=== PATIENT | male | born 1965 | race Caucasian/White ===

== ENCOUNTER 2016-10-30 13:08 | Emergency (ER) | payer OTHER ==
[~2016-10-30] VITALS: Ht 175.3 cm; Wt 111.0 kg
[~2016-10-30 13:08] MED LIST: DVN160125 PO; VERA120T15 PO
[2016-10-30 13:27] VITALS: TEMP 36.9; Ht 175.3 cm; Wt 111.0 kg
[2016-10-30] MEDS ORDERED: XYLOCAINE 1%/SOD BICARB 20 ML VIAL INFIL ONE (13:45)
--- NOTE | 2016-10-30 14:34 | EMERGENCY ROOM VISIT NOTE ---
ED Visit Note First contact with patient: 13:32 CHIEF COMPLAINT: Left thigh laceration HISTORY OF PRESENT ILLNESS: This 51-year-old male patient cut the left thigh when he tripped while carrying a chain saw in his hand. This happened approximately 1-1/2 hours ago. The bleeding has stopped. The patient's tetanus is up-to-date. The patient is able to ambulate without any difficulty. The patient denies any numbness and tingling in his leg. REVIEW OF SYSTEMS: 6 system review was performed and was negative unless stated otherwise in history of present illness. PMH: The patient is healthy; hypertension, rotator cuff repair SOCIAL HISTORY: Patient lives with his . The patient denies any tobacco or alcohol use. PHYSICAL EXAM: Vital Signs: Were reviewed Reviewed Nurse's notes. GEN.: 51-year -old white male appears in no acute distress. MENTAL Status: Alert and oriented 3. LEFT THIGH: There is a 5 cm long laceration on the anterior aspect of the thigh. The edges are gaping apart. There is no foreign material in the wound and it looks clean. There is no active bleeding. No deep structures such as tendons or nerves are seen in the base of the wound. EMERGENCY DEPARTMENT COURSE: The patient was evaluated. Wound Repair: Complexity: Basic. Verbal consent was obtained after the risks and benefits were explained, including but not limited to bleeding, scarring, infection, pain, and bone/joint /nerve damage. The skin was prepped with betadine and a sterile field set. The wound was anesthetized with 4.8 ml of 1% buffered lidocaine. With direct pressure the bleeding subsided. Copious irrigation was performed using sterile saline. The wound was explored for foreign bodies and none found. Debridement was not performed. The wound edges were approximated using 5-0 Ethilon with 9 simple interrupted sutures. Hemostasis and excellent approximation was achieved. Antibacterial ointment and a sterile dressing applied. Detailed wound care instructions and signs and symptoms of infection reviewed with the patient. No complications and the patient tolerated the procedure well. DIAGNOSIS: 5 cm left leg laceration DISCHARGE INSTRUCTIONS & TREATMENT: Keep wound clean and dry. No water on the area for 12-24 hrs then no soaking until sutures removed. Do not allow any crusting or dried blood to accumulate on sutures. If this occurs, use a 1:1 solution of hydrogen peroxide/water on a Q-tip to clean the wound. Use an antibiotic ointment for 3-4 days, then let wound dry. Suture removal in 10 days. Follow up sooner for any signs of infection (increasing redness, swelling , drainage). Ice and elevate for swelling and pain. Tylenol 650 mg every 6 hrs for pain. Keep covered when in sun until sutures removed then SPF 50 or higher for one year. Vitamin E oil if desired two weeks after suture removal for reduction of scar. Current/Historical Medications Scheduled Valsartan/Hctz (Diovan Hct 160MG/12.5MG *), 1 TAB PO BID Verapamil (Calan), 180 MG PO DAILY Allergies Coded Allergies: No Known Allergies (Unverified , NONE, 10/30/16) Vital Signs Date Time Temp Pulse Resp B/P Pulse Ox O2 Delivery O2 Flow Rate FiO2 10/30/16 13:27 36.9 94 16 163/97 96 Medications Administered Medications (Trade) Dose Ordered Sig/Krysta Route Start Time Stop Time Status Last Admin Dose Admin Lidocaine HCl (Buffered Lidocaine 1% Inj) 20 ml NOW ONCE INFIL 10/30/16 13:45 10/30/16 13:46 DC 10/30/16 13:45 20 ML Departure Information Referrals Tony Ardon D.O.Int.Med. (PCP) Patient Instructions My [facility]
[2016-10-30 14:42] VITALS: BP 155/88; PULSE 89; O2SAT 99
[2016-11-10] MEDS ORDERED: VERA180T33 PO (09:06)
== END 2016-10-30 14:43 | disposition home or self-care (01) ==
LOC: C.EDB 13:11 → C.EDD 14:43
DX: S71.112A Laceration without foreign body, left thigh, initial encounter (principal); W01.111A Fall on same level from slipping, tripping and stumbling with subsequent striking against power tool or machine, initial encounter; I10 Essential (primary) hypertension

== ENCOUNTER 2016-11-10 18:30 | Emergency (ER) | payer OTHER ==
[~2016-11-10] VITALS: Ht 175.3 cm; Wt 111.9 kg
[~2016-11-10 18:30] MED LIST changes: -VERA120T15 PO; +VERA180T33 PO
[2016-11-10 18:42] VITALS: BP 153/93; PULSE 85; TEMP 36.9; O2SAT 96; Ht 175.3 cm; Wt 111.9 kg
[2016-11-10] MEDS ORDERED: VALS160T58 PO (19:04)
--- NOTE | 2016-11-10 19:24 | EMERGENCY ROOM VISIT NOTE ---
ED Visit Note First contact with patient: 18:40 CHIEF COMPLAINT: Suture removal. HISTORY OF PRESENT ILLNESS: Mr. Barajas is a 54-year-old white male who ambulates into the ED requesting suture removal for a laceration he sustained 11days ago. He reports he feels the laceration has been healing well and reports he has had no pain, swelling, redness, or drainage from the wound. PHYSICAL EXAM: Vital Signs: Date Time Temp Pulse Resp B/P Pulse Ox O2 Delivery O2 Flow Rate FiO2 11/10/16 18:42 36.9 85 18 153/93 96 Room Air General: 51-year-old white male in no acute distress, afebrile and hemodynamically stable. Neurological: Awake, alert and oriented 3. Answering questions appropriately and following commands. Normal gait. Good hand eye coordination. Skin: Clean, dry and intact wound on the anterior left thigh with mild erythema surrounding the wound but no lymphangitis, swelling, tenderness, purulent drainage. ED COURSE: Patient is assessed as noted above. 9 sutures were removed without any difficulty and there was no separation of the wound edges. Patient was educated about tonight's findings and instructed on his treatment plan; he verbalizes understanding and agreement with this plan. DISPOSITION: Patient discharged home in stable condition. CLINICAL IMPRESSION: Suture removal; Well healing laceration PLAN: Patient was encouraged to continue wash the wound with soap and water and apply small amount of antibiotic ointment. Patient was encouraged to follow-up with PCP or return ED for signs of infection or any new/concerning symptoms.
== END 2016-11-10 19:14 | disposition home or self-care (01) ==
LOC: C.EDB 18:31 → C.EDD 19:14
DX: Z48.02 Encounter for removal of sutures (principal); S71.112D Laceration without foreign body, left thigh, subsequent encounter; X58.XXXD Exposure to other specified factors, subsequent encounter

== ENCOUNTER → 2017-10-10 | Day surgery (SDC) | payer BC, OTHER ==
[2016-11-02 09:06] VITALS: BMI 35.0
[2017-09-28 09:48] VITALS: Ht 175.3 cm; Wt 109.1 kg
[~2017-10-10] VITALS: Ht 175.3 cm; Wt 109.1 kg
[~2017-10-10] MED LIST changes: -DVN160125 PO; +LIDOCAINE HCL 2% 2 ML VIAL (20MG/ML) ONE; +OMEG10007 PO; +PROPOFOL IV EMULSION 10 MG/ML 20 ML VIAL IV ONE; +SODIUM CHLORIDE 0.9% 500ML 500 ML IV ONE; +VALS160T58 PO
--- NOTE | 2017-10-10 09:45 | Endo History and Physical ---
History & Physical Date of Service: Oct 10, 2017. Chief Complaint: Screening Referring Physician: Dr. Lara History of Present Illness 52 yo CM who presents for screening colonoscopy. Past Surgical History Hx Cardiac Surgery: No Hx Internal Defibrillator: No Hx Pacemaker: No Hx Abdominal Surgery: No Hx of Implantable Prosthesis: No Hx Post-Op Nausea and Vomiting: No Hx Cancer Surgery: No Hx Thoracic Surgery: No Hx Orthopedic: Yes (RT RCR) Hx Urinary Tract Surgery: No Family History None Social History Smoking Status: Never Smoker Hx Substance Use: No Hx Alcohol Use: Yes (RARELY) Allergies Coded Allergies: No Known Allergies (Verified , NONE, 10/10/17) Current Medications Reported Home Medications Medications Dose Route/Sig Max Daily Dose Days Date Category [place]-3 (Fish Oil) 1 Ea Cap 1 Cap PO QAM 09/28/17 Reported Diovan Hct 160MG/12.5MG (HCTZ/Valsartan) 1 Tab Tab 1 Tab PO BID 11/10/16 Reported Calan Sr Ext Rel (Verapamil Hcl) 180 Mg Tab 180 Mg PO QAM 11/02/16 Reported Vital Signs Weight (Kilograms): 109.09 Height (Feet): 5 Height (Inches): 9 Physical Exam General Appearance: WD/WN, no apparent distress Respiratory/Chest: Auscultation: breath sounds normal Cardiovascular: Heart Auscultation: RRR Abdomen: Bowel Sounds: normal Inspection & Palpation: soft, non-distended, no tenderness, guarding & rebound Assessment and Plan Assessment: 51 yo CM who presents for screening colonoscopy. Plan: Proceed with colonoscopy.
--- NOTE | 2017-10-10 11:27 | Discharge Instructions ---
Endoscopy Patient Instructions Date / Procedure(s) Performed Oct 10, 2017. Colonoscopy Allergy Information Coded Allergies: No Known Allergies (Verified , NONE, 10/10/17) Discharge Date / Findings Oct 10, 2017. Colon polyps Diverticulosis Internal hemorrhoids Medication Instructions OK to resume all medication today as prescribed Reported Home Medications Medications Dose Route/Sig Max Daily Dose Days Date Category [place]-3 (Fish Oil) 1 Ea Cap 1 Cap PO QAM 09/28/17 Reported Diovan Hct 160MG/12.5MG (HCTZ/Valsartan) 1 Tab Tab 1 Tab PO BID 11/10/16 Reported Calan Sr Ext Rel (Verapamil Hcl) 180 Mg Tab 180 Mg PO QAM 11/02/16 Reported Provider Instructions Activity Restrictions - No exercising or heavy lifting for 24 hours. - Do not drink alcohol the day of the procedure. - Do not drive a car or operate machinery until the day after the procedure. - Do not make any important decisions or sign important papers in 24 hours after the procedure. Following Day: - Return to full activity which may include returning to work/school. Diet Start your diet with liquids and light foods (jello, soup, juice, toast). Then eat your usual diet if not nauseated. Treatment For Common After Affects For mild abdominal pain, bloating, or excessive gas: - Rest - Eat lightly - Lie on right side Follow-Up Information Follow-up with Dr. Amrit Lara as scheduled Anesthesia Information What You Should Know You have had a procedure that required some medicine to reduce anxiety and discomfort. This treatment is called moderate sedation. After receiving the treatment, you may be sleepy, but you will be able to breathe on your own. The effects of the treatment may last for several hours. Follow these instructions along with Activity/Diet recommendations noted above: * Do NOT do anything where dizziness or clumsiness would be dangerous. * Rest quietly at home today, then you can be up and about tomorrow. * Have a responsible person stay with you the rest of today. * You may have had an I.V. today. If so, you may take the dressing off later today. Recommendations Call your doctor if: * Trouble breathing * Continuous vomiting for more than 24 hours * Temperature above 101 degrees * Severe abdominal pain or bloating * Pain not relieved by pain medicine ordered * There is increased drainage or redness from any incision * A large amount of rectal bleeding greater than 2-3 tablespoons. (If you had a polyp/s removed or have hemorrhoids, a small amount of blood - from the rectum is to be expected.) * You have any unanswered questions or concerns. IN THE EVENT OF A SERIOUS EMERGENCY, GO TO THE NEAREST EMERGENCY ROOM Your discharge instructions were prepared by provider Jeromy Proctor. Patient Instructions Signature Page Jerel Close Patient (or Guardian) Signature/Date: I have read and understand the instructions given to me by my caregivers. Caregiver/RN/Doctor Signature/Date: The above-named patient and/or guardian has received patient instructions on this date. + Original Patient Signature Page (only) stays with chart. Please make copy for patient.
--- NOTE | 2017-10-10 11:31 | GI REPORT ---
Procedure Date: 10/10/2017 10:52 AM Procedure: Colonoscopy Indications: Screening for colorectal malignant neoplasm Medicines: Monitored Anesthesia Care Complications: No immediate complications. Estimated Blood Loss: Estimated blood loss: none. Procedure: Pre-Anesthesia Assessment: - Prior to the procedure, a History and Physical was performed, and patient medications and allergies were reviewed. The patient's tolerance of previous anesthesia was also reviewed. The risks and benefits of the procedure and the sedation options and risks were discussed with the patient. All questions were answered, and informed consent was obtained. Prior Anticoagulants: The patient has taken no previous anticoagulant or antiplatelet agents. ASA Grade Assessment: II - A patient with mild systemic disease. After reviewing the risks and benefits, the patient was deemed in satisfactory condition to undergo the procedure. After I obtained informed consent, the scope was passed under direct vision. Throughout the procedure, the patient's blood pressure, pulse, and oxygen saturations were monitored continuously. The scope was introduced through the anus and advanced to the terminal ileum. The colonoscopy was performed without difficulty. The patient tolerated the procedure well. The quality of the bowel preparation was good. The appendiceal orifice and the rectum were photographed. Findings: The perianal and digital rectal examinations were normal. Four sessile polyps were found in the ascending colon and cecum. The polyps were 3 to 5 mm in size. These polyps were removed with a cold snare. Resection and retrieval were complete. Multiple small-mouthed diverticula were found in the sigmoid colon. Non-bleeding internal hemorrhoids were found during retroflexion. The hemorrhoids were small. Impression: - Four 3 to 5 mm polyps in the ascending colon and in the cecum, removed with a cold snare. Resected and retrieved. - Diverticulosis in the sigmoid colon. - Non-bleeding internal hemorrhoids. Recommendation: - Resume previous diet. - Continue present medications. - Repeat colonoscopy for surveillance based on pathology results. - Return to primary care physician as previously scheduled. Jeromy Proctor, DO 10/10/2017 11:30:39 AM This report has been signed electronically. Note Initiated On: 10/10/2017 10:52 AM I attest to the content of the Intraoperative Record and orders documented therein, exceptions below
[2017-10-10 11:47] VITALS: BP 132/84; PULSE 71; O2SAT 98
--- NOTE | 2017-10-10 12:13 | Anesthesiology Progress Note ---
Anesthesia Post Op Note Date & Time Oct 10, 2017 at 12:12 Vital Signs Pain Intensity: 0 Vital Signs Past 12 Hours Date Time Temp Pulse Resp B/P (MAP) Pulse Ox O2 Delivery O2 Flow Rate FiO2 10/10/17 11:47 65 20 121/85 (97) 98 Room Air 10/10/17 11:30 65 16 119/68 (85) 98 Room Air 10/10/17 11:29 67 16 111/68 (82) 97 Room Air 10/10/17 09:47 36.5 65 18 128/82 (97) 99 Room Air Notes Mental Status: alert / awake / arousable, participated in evaluation Pt Amnestic to Procedure: Yes Nausea / Vomiting: adequately controlled Pain: adequately controlled Airway Patency, RR, SpO2: stable & adequate BP & HR: stable & adequate Hydration State: stable & adequate Anesthetic Complications: no major complications apparent
== END | disposition home or self-care (01) ==
LOC: C.GI 09:12
PROVIDERS: ATTEND Internal Medicine
DX: Z12.11 Encounter for screening for malignant neoplasm of colon (principal); D12.2 Benign neoplasm of ascending colon; D12.0 Benign neoplasm of cecum; K57.30 Diverticulosis of large intestine without perforation or abscess without bleeding; K64.8 Other hemorrhoids; I10 Essential (primary) hypertension; E78.5 Hyperlipidemia, unspecified; E66.9 Obesity, unspecified; Z68.35 Body mass index [BMI] 35.0-35.9, adult

== ENCOUNTER 2018-09-13 08:10 | Observation (INO) ==
[2018-09-13] MEDS ORDERED: ASPIRIN CHEW 324 MG PO STA (08:29)
[2018-09-13] MEDS ORDERED: HydrALAZINE HCL 20 MG/ML VIAL IV STA (08:30)
[2018-09-13 08:40] LABS: Basophils # (auto) 0.02 K/uL (0-0.2); Basophils % (auto) 0.4 %; Eosinophils # (auto) 0.07 K/uL (0-0.5); Eosinophils % (auto) 1.3 %; Hematocrit (blood only) 44.5 % (42-52); Hemoglobin 14.9 g/dL (14.0-18.0); Immature Granulocytes # (auto) 0.02 K/uL (0.00-0.02); Immature Granulocytes % (auto) 0.4 %; Lymphocytes # (auto) 1.83 K/uL (1.2-3.4); Lymphocytes % (auto) 34.7 %; Mean Corpuscular Hgb Conc 33.5 g/dL (32-36); Mean Corpuscular Volume 88.8 fL (80-100); Mean Platelet Volume 11.3 fL (7.4-10.4); Monocytes # (auto) 0.46 K/uL (0.11-0.59); Monocytes % (auto) 8.7 %; Neutrophils # (auto) 2.87 K/uL (1.4-6.5); Neutrophils % (auto) 54.5 %; Platelet Count 185 K/uL (130-400); RDW Coefficient of Variation 13.6 % (11.5-14.5); RDW Standard Deviation 44.1 fL (36.4-46.3); Red Blood Count 5.01 M/uL (4.7-6.1); White Blood Count 5.27 K/uL (4.8-10.8)
[2018-09-13 08:56] LABS: Alanine Aminotransferase 35 U/L (12-78); Albumin Level 4.3 gm/dl (3.4-5.0); Aspartate Aminotransferase 16 U/L (15-37); Blood Urea Nitrogen 15 mg/dl (7-18); Calcium 9.3 mg/dl (8.5-10.1); Carbon Dioxide 25 mmol/L (21-32); Chloride 102 mmol/L (98-107); Creatinine Clr Calc Pharmacy 85.2 ml/min; Est GFR (African American) 73.6; Est GFR (Non-African American) 63.5; Glucose 100 mg/dl (70-99); Potassium 3.7 mmol/L (3.5-5.1); Sodium 136 mmol/L (136-145)
[2018-09-13 09:01] LABS: Albumin Globulin Ratio 1.1 (0.9-2); Alkaline Phosphatase 76 U/L (45-117); Bilirubin,Total 0.9 mg/dl (0.2-1); Globulin 3.9 gm/dl (2.5-4.0); Total Protein 8.2 gm/dl (6.4-8.2); Troponin I < 0.015 ng/ml (0-0.045)
--- NOTE | 2018-09-13 09:09 | XRay Report ---
XR chest 1V portable CLINICAL HISTORY: Chest Pain COMPARISON STUDY: Chest radiograph and chest CT May 10, 2011. FINDINGS: There is no pneumothorax or pleural effusion. There is no consolidation or evidence for pul monary edema. Cardiomediastinal silhouette is stable. Appearance of the chest is unchanged. IMPRESSION: No acute cardiopulmonary findings. Electronically signed by: Stu Hughes M.D. 09/13/2018 9:07 AM
[2018-09-13] MEDS ORDERED: LABETALOL HCL IV 5 MG/ML 20ML IV STA (09:36)
--- NOTE | 2018-09-13 10:55 | History & Physical Report ---
Date of Service September 13, 2018 Assessment & Plan (1) Substernal chest pain: This patient is a 53-year-old male with a history of hypertension and obesity, who presents to the ER with 3 days of intermittent chest discomfort that is substernal and radiates to the throat, jaw, and at times to the left shoulder. It feels like a burning in nature and is sometimes associated with belching. It is not associated with nausea or shortness of breath, however he does feel he gets to take one deep breath when it first starts to catch his breath. It usually lasts less than an hour but this morning it lasted a full hour prior to coming in here and was resolved on its own by the time he got here. At first it seemed to come on with walking, but then at other times it would come on at rest. In the ER, his blood pressure was quite elevated at 181/112 and he was given IV hydralazine and IV labetalol Chest pain seems atypical but does have a strong family history, uncontrolled hypertension as risk factors for heart disease. -Admit to telemetry for cardiac rhythm monitoring -Serial troponins, fasting lipid profile in the morning and start statin if indicated and/or if has CAD -Resting echocardiogram ordered -If troponins negative, consider stress echocardiogram in the morning, will make n.p.o. after midnight just in case -Consult cardiology for further input -Start aspirin 81 mg once daily -Could try Maalox if chest pain recurs as does sound GI related -Daily EKG (2) HTN (hypertension): Long-standing, uncontrolled at present -Continue home verapamil 180 mg once daily and losartan/HCT at home dosing, however could consider increasing doses if blood pressure remains uncontrolled by tomorrow (3) Obesity: Needs counseling on weight loss, and dietary changes (4) Hypertensive urgency: Blood pressure significant elevated upon admission, was given IV hydralazine and IV labetalol in the ER. He does not check his blood pressure much at home but when he does it normally is in the 120s-130s systolic as he can recall. May be elevated here secondary to anxiety. -Will assess blood pressure throughout the day and consider increasing home p.o. meds as noted above if remains elevated -will have IV labetalol ordered as needed (5) RBBB: New from previous in 2010 -Most likely a benign finding, but appreciate cardiology consultation (6) DVT prophylaxis: SCDs, Lovenox SQ Disposition-admit to telemetry, most likely go home tomorrow after an overnight observation stay History of Present Illness Chief Complaint: Chest discomfort Primary Care Provider: Amrit Lara DO This patient is a 53-year-old male with a history of hypertension and obesity, who presents to the ER with 3 days of intermittent chest discomfort that is substernal and radiates to the throat, jaw, and at times to the left shoulder. It feels like a burning in nature and is sometimes associated with belching. It is not associated with nausea or shortness of breath, however he does feel he gets to take one deep breath when it first starts to catch his breath. It usually lasts less than an hour but this morning it lasted a full hour prior to coming in here and was resolved on its own by the time he got here. At first it seemed to come on with walking, but then at other times it would come on at rest. In the ER, his blood pressure was quite elevated at 181/112 and he was given IV hydralazine and IV labetalol He denied headache or lightheadedness, recent illness, no visual changes, no fevers, no abdominal pains, no nausea/vomiting/diarrhea, no joint pains or rashes. He will be admitted for a rule out acute coronary syndrome and further cardiac risk stratification. Allergies Allergy/AdvReac Type Severity Reaction Status Date / Time No Known Allergies Allergy NONE Verified 09/13/18 08:27 Home Medications Home Medications Medication Instructions Recorded Confirmed Type losartan-hydrochlorothiazide 1 tab PO QAM 09/13/18 09/13/18 History omega 5-stm-uzj-fish oil [Fish Oil] 1 cap PO QAM 09/13/18 09/13/18 History verapamil 180 mg PO QAM 09/13/18 09/13/18 History Past Med/Surg History Medical History Hypertensive urgency Obesity Substernal chest pain (Acute) HTN (hypertension) Surgical History History of excision of pilonidal cyst History of repair of rotator cuff Family History Father Heart attack, Onset Age: 55 Uncle Heart attack, Onset Age: 68 Mother Afib HTN (hypertension), benign Grandfather (Maternal) HTN (hypertension), benign Social History marital status: Current Living Situation: Spouse and Family current occupational status: employed 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 Other Information That Helps Us Care for You: No Feels Safe at Home: Yes Safety Concerns: Feels Safe At This Time Smoking Status: Never smoker Do You Dip or Chew Tobacco: Yes (snuff occ) Hx Alcohol Use: No Hx Substance Use: No Beliefs That Will Affect Care: None Preferred Language: Uzbek Communication Ability: Effective Review of Systems All systems reviewed & are unremarkable except as noted in HPI & below Physical Exam 2 Vital Signs (Past 24 Hours): Last Vital Signs Temp 36.7 C 09/13/18 08:11 Pulse 73 09/13/18 10:14 Resp 18 09/13/18 10:14 BP 162/105 H 09/13/18 10:14 Pulse Ox 97 09/13/18 08:56 Constitutional: WD/WN, vitals as above Eyes: PERRL, conjunctivae normal, anicteric sclerae ENMT: external ear and nose normal, oropharynx normal Ears: no external ear abnormality, no EAC abnormality and no TM abnormality Neck: trachea midline, no thyromegaly Respiratory: normal respiratory effort, lungs clear to auscultation Cardiovascular: RRR, no murmur, no edema Vessels: dorsalis pedis pulses present; no JVD and no carotid bruit Extremities: no edema Gastrointestinal (Abdomen): normal bowel sounds, soft, nontender, no hepatosplenomegaly Musculoskeletal: Extremities: extremities normal to inspection; no cyanosis and no clubbing Skin: no rashes, warm and dry Neurologic: moves all extremities and awake; no focal motor deficits Psychiatric: A+Ox3, euthymic affect Lymphatic: no preauricular lymphadenopathy, no cervical lymphadenopathy and no subclavicular lymphadenopathy Results & Data Laboratory Results 09/13/18 09/13/18 09/13/18 Range/Units 08:33 08:30 08:30 WBC 5.27 (4.8-10.8) K/uL RBC 5.01 (4.7-6.1) M/uL Hgb 14.9 (14.0-18.0) g/dL Hct 44.5 (42-52) % MCV 88.8 (80-100) fL MCH 29.7 (25-34) pg MCHC 33.5 (32-36) g/dL RDW Std Deviation 44.1 (36.4-46.3) fL RDW Coeff of Ashlee 13.6 (11.5-14.5) % Plt Count 185 (130-400) K/uL MPV 11.3 H (7.4-10.4) fL Immature Gran % (Auto) 0.4 % Neut % (Auto) 54.5 % Lymph % (Auto) 34.7 % Wallace % (Auto) 8.7 % Eos % (Auto) 1.3 % Baso % (Auto) 0.4 % Immature Gran # (Auto) 0.02 (0.00-0.02) K/uL Neut # (Auto) 2.87 (1.4-6.5) K/uL Lymph # (Auto) 1.83 (1.2-3.4) K/uL Wallace # (Auto) 0.46 (0.11-0.59) K/uL Eos # (Auto) 0.07 (0-0.5) K/uL Baso # (Auto) 0.02 (0-0.2) K/uL Sodium 136 (136-145) mmol/L Potassium 3.7 (3.5-5.1) mmol/L Chloride 102 (98-107) mmol/L Carbon Dioxide 25 (21-32) mmol/L Anion Gap 9.0 (3-11) BUN 15 (7-18) mg/dl Creatinine 1.28 (0.6-1.4) mg/dl Est Cr Clr Drug Dosing 85.2 ml/min Est GFR ( Amer) 73.6 Est GFR (Non-Af Amer) 63.5 BUN/Creatinine Ratio 12.0 (10-20) Glucose 100 H (70-99) mg/dl Calcium 9.3 (8.5-10.1) mg/dl Total Bilirubin 0.9 (0.2-1) mg/dl AST 16 (15-37) U/L ALT 35 (12-78) U/L Alkaline Phosphatase 76 (45-117) U/L POC Troponin I < 0.03 (0-0.045) ng/ml Troponin I < 0.015 (0-0.045) ng/ml Total Protein 8.2 (6.4-8.2) gm/dl Albumin 4.3 (3.4-5.0) gm/dl Globulin 3.9 (2.5-4.0) gm/dl Albumin/Globulin Ratio 1.1 (0.9-2) Lipase 127 (73-393) U/L Diagnostic Findings Chest x-ray image personally reviewed by me and agree with the following report: XR chest 1V portable CLINICAL HISTORY: Chest Pain COMPARISON STUDY: Chest radiograph and chest CT May 10, 2011. FINDINGS: There is no pneumothorax or pleural effusion. There is no consolidation or evidence for pulmonary edema. Cardiomediastinal silhouette is stable. Appearance of the chest is unchanged. IMPRESSION: No acute cardiopulmonary findings. ECG Indication: chest pain Rhythm: normal sinus Findings: + RBBB (New from 2010) Additional Comments: No ischemic changes noted Code Status & VTE Plan Code Status Full code VTE Prophylaxis Plan VTE Prophylaxis will be ordered: Yes _ (1) HTN (hypertension) Hypertension type: essential hypertension Qualified Code(s): I10 - Essential (primary) hypertension (2) Obesity Obesity classification: adult class 1 (BMI 30 - 34.9) Serious obesity comorbidity presence: with serious comorbidity Body mass index: BMI 34.0-34.9 Obesity type: unspecified obesity type Qualified Code(s): E66.9 - Obesity, unspecified; Z68.34 - Body mass index (BMI) 34.0-34.9, adult
[2018-09-13] MEDS ORDERED: LABETALOL HCL IV 5 MG/ML 20ML IV PRN ×2 (11:03→14:00)
[2018-09-13] MEDS ORDERED: POLYETHYLENE (MIRALAX) 17 GM PACK PO PRN (11:56)
[2018-09-13] MEDS ORDERED: NITROGLYCERIN SL 0.4 MG/TAB TAB SL PRN (11:56)
[2018-09-13] MEDS ORDERED: ALUMINUM/MAGNESIUM SUSP 30 ML UDC PO PRN (11:56)
[2018-09-13] MEDS ORDERED: ONDANSETRON INJ 2 MG/ML 2 ML VIAL IV PRN (11:56)
[2018-09-13] MEDS ORDERED: ACETAMINOPHEN 325 MG TAB ONE (13:10)
[2018-09-13] MEDS: ACETAMINOPHEN 325 MG TAB PO PRN ×2 (13:12→20:11)
[2018-09-13 14:33] LABS: INR 1.1 (0.9-1.1); Prothrombin Time 10.7 Seconds (9.0-12.0)
--- NOTE | 2018-09-13 15:47 | Emergency Department Note ---
Entered by Qi Beard acting as a scribe for History of Present Illness General Chief complaint: Cardiac Assessment Stated complaint: CHEST DISCOMFORT Time Seen by Provider: 09/13/18 08:23 Source: patient History of Present Illness Provider complaint: Chest discomfort Onset (ago): day(s) 3 Location: chest Radiation: neck Pain Consistency: + intermittent Quality: + burning and + other (tingling) Relieved By: + other (stretching) Associated symptoms: + other (Denies: chest pain, leg swelling) The patient is a 53 year old male who presents to the Emergency Room with complaints of intermittent chest discomfort beginning 3 days ago. He describes his symptoms as a tingling or burning, and states he does not feel like he has chest pain. The patient states this sensation radiates to his neck, and denies radiation to his arm or back. He notes stretching seems to relieves these symptoms. The patient states it almost feels as though he has pulled a muscle in his back. He reports he notices this discomfort when walking. The patient states he feels as though he has to take a deep breath when walking. He denies leg swelling. The patient reports his father had his first heart attack in his 50s, and both his father and uncle have atypical heart attacks. He states his mother has A fib. He is a pt of Dr. Amrit Lara. Home Medications Home Medications Medication Instructions Recorded Confirmed Type losartan-hydrochlorothiazide 1 tab PO QAM 09/13/18 09/13/18 History omega [id number] oil [Fish Oil] 1 cap PO QAM 09/13/18 09/13/18 History aspirin [Ecotrin Low Strength] 81 mg PO QAM #30 tab 09/15/18 Rx atorvastatin 80 mg PO HS #30 tab 09/15/18 Rx clopidogrel 75 mg PO QAM #30 tab 09/15/18 Rx metoprolol succinate [Toprol XL] 50 mg PO DAILY #30 tab 09/15/18 Rx nitroglycerin [Nitrostat] 0.4 mg SUBLINGUAL Q5M PRN #30 tab 09/15/18 Rx Allergies Allergy/AdvReac Type Severity Reaction Status Date / Time No Known Allergies Allergy NONE Verified 09/13/18 08:27 Past Med/Surg History Medical History Hypertensive urgency Obesity Substernal chest pain (Acute) HTN (hypertension) Surgical History History of excision of pilonidal cyst History of repair of rotator cuff Family History Father Heart attack, Onset Age: 55 Uncle Heart attack, Onset Age: 68 Mother Afib HTN (hypertension), benign Grandfather (Maternal) HTN (hypertension), benign Social History marital status: Current Living Situation: Spouse and Family current occupational status: employed 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 and A total of 10 systems reviewed and were otherwise negative Physical Exam Vital Signs Vital Signs - 24 hr 09/15/18 08:00 09/15/18 11:22 Temperature 37.2 C 37.2 C Temperature Source Oral Pulse Rate [Left] 73 73 Pulse Rhythm [Left] Regular Pulse Strength [Left] Normal Respiratory Rate 16 16 Respiratory Effort / Characteristics Non-Labored Respiratory Depth Normal Respiratory Pattern Regular Blood Pressure [Left Arm] 164/93 H 164/93 H Blood Pressure Mean [Left Arm] 116 Blood Pressure Position [Left Arm] Lying Pulse Oximetry 96 96 Oxygen Delivery Method Room Air Vital signs reviewed. General: Well-appearing middle-aged man, in no significant distress. HEENT: No scleral icterus, PERRLA, neck supple. Atraumatic. Cardiovascular: Regular rate and rhythm, no extra sounds. Pulmonary: Clear to auscultation bilaterally, normal work of breathing. Abdomen: Soft, nontender, nondistended, positive bowel sounds. Musculoskeletal: Atraumatic, no peripheral edema. Neurologic: Patient awake alert and oriented x 3. Skin: Warm, dry, no rash. Course 0826: Past medical records reviewed. The patient was evaluated in room B10, and a complete history and physical examination were performed. 0939: I reviewed the patient's case with Dr. Biswas, [facility] hospitalist. He will evaluate the patient for further management. 0956: Upon reevaluation, the patient is resting. I discussed test results. They verbalized agreement with the treatment plan. Consultations Consultation #1: I reviewed the patient's case with Dr. Biswas, [facility] hospitalist. He will evaluate the patient for further management. Time: 09:39 Administered Medications Discontinued Medications Acetaminophen (Tylenol) 650 mg PO Q4H PRN PRN Reason: Pain or Fever Stop: 10/13/18 11:55 Last Admin: 09/15/18 02:44 Dose: 650 mg Admin: 09/14/18 21:03 Dose: 650 mg Admin: 09/14/18 08:16 Dose: 650 mg Admin: 09/13/18 20:11 Dose: 650 mg Admin: 09/13/18 13:12 Dose: 650 mg Acetaminophen (Tylenol) Confirm Administered Dose 650 mg .ROUTE .STK-MED ONE Stop: 09/13/18 13:11 Last Admin: 09/13/18 13:12 Dose: Not Given Aspirin (Aspirin) 324 mg PO NOW [facility] Stop: 09/13/18 08:30 Last Admin: 09/13/18 08:45 Dose: 324 mg Aspirin (Ecotrin Ectab) [facility] Stop: 10/14/18 08:59 Last Admin: 09/15/18 07:48 Dose: 81 mg Admin: 09/14/18 08:14 Dose: 81 mg Atorvastatin Calcium (Lipitor) 40 mg PO [facility] Stop: 10/13/18 20:59 Last Admin: 09/13/18 21:28 Dose: 40 mg Atorvastatin Calcium (Lipitor) 80 mg PO [facility] Stop: 10/14/18 20:59 Last Admin: 09/14/18 21:00 Dose: 80 mg Clopidogrel Bisulfate (Plavix) Confirm Administered Dose 600 mg .ROUTE .STK-MED ONE Stop: 09/14/18 12:28 Last Admin: 09/14/18 12:34 Dose: 600 mg Clopidogrel Bisulfate (Plavix) [facility] [place] Stop: 10/15/18 08:59 Last Admin: 09/15/18 07:51 Dose: 75 mg Enoxaparin Sodium (Lovenox) 40 mg SQ Q24H [facility] Stop: 10/13/18 15:59 Last Admin: 09/14/18 16:45 Dose: 40 mg Admin: 09/13/18 16:32 Dose: 40 mg Fentanyl Citrate (Fentanyl Citrate) Confirm Administered Dose 100 mcg .ROUTE .[facility] ONE Stop: 09/14/18 10:16 Last Increment: 09/14/18 12:32 Dose: 50 mcg Heparin Sodium (Porcine) (Heparin Iv Bolus (Heading Matcher [employer] Assembler Use Only)) Confirm Administered Dose 10,000 units .ROUTE .[facility] ONE Stop: 09/14/18 10:16 Last Admin: 09/14/18 12:32 Dose: 10,000 units Heparin Sodium (Porcine) (Heparin Iv Bolus (Heading Matcher [employer] Assembler Use Only)) Confirm Administered Dose 10,000 units .ROUTE [facility] Stop: 09/14/18 11:28 Last Admin: 09/14/18 12:34 Dose: 8,000 units Heparin Sodium/Sodium Chloride (Heparin Sod/Nss 2 Units/Ml) Confirm Administered Dose 3,000 units IV .[facility] Stop: 09/14/18 10:16 Last Admin: 09/14/18 10:32 Dose: 3,000 units Hydralazine HCl (Hydralazine Hcl) 10 mg IV NOW STA Stop: 09/13/18 08:31 Last Admin: 09/13/18 08:45 Dose: 10 mg Hydrochlorothiazide (Hctz) 12.5 mg PO QAM [facility] Stop: 10/14/18 08:59 Last Admin: 09/15/18 07:49 Dose: 12.5 mg Admin: 09/14/18 08:14 Dose: 12.5 mg Sodium Chloride (Nss 1000ml) 1,000 mls @ 100 mls/hr IV .Q10H [facility] Stop: 09/14/18 17:59 Last Infusion: 09/14/18 20:52 Dose: 0 mls/hr Admin: 09/14/18 13:00 Dose: 100 mls/hr Labetalol HCl (Normodyne) 10 mg IV NOW STA Stop: 09/13/18 09:37 Last Admin: 09/13/18 10:12 Dose: 10 mg Lidocaine HCl (Xylocaine 1% (Local)) Confirm Administered Dose 20 ml .ROUTE .[facility] Stop: 09/14/18 10:14 Last Admin: 09/14/18 10:32 Dose: 20 ml Losartan Potassium (Cozaar) 50 mg PO QAM [facility] Stop: 10/14/18 08:59 Last Admin: 09/15/18 07:48 Dose: 50 mg Admin: 09/14/18 08:13 Dose: 50 mg Metoprolol Tartrate (Lopressor) 25 mg PO BID [facility] Stop: 10/13/18 20:59 Last Admin: 09/15/18 07:48 Dose: 25 mg Admin: 09/14/18 20:59 Dose: 25 mg Admin: 09/14/18 08:14 Dose: 25 mg Admin: 09/13/18 21:28 Dose: 25 mg Midazolam HCl (Versed) Confirm Administered Dose 2 mg .ROUTE .STK-MED [facility] Stop: 09/14/18 10:16 Last Admin: 09/14/18 12:33 Dose: 2 mg Midazolam HCl (Versed) Confirm Administered Dose 2 mg .ROUTE .STK-MED ONE Stop: 09/14/18 11:07 Last Admin: 09/14/18 12:33 Dose: Not Given Morphine Sulfate (Morphine Sulfate) 2 mg IV NOW [facility] Stop: 09/14/18 13:56 Last Admin: 09/14/18 14:02 Dose: Not Given Morphine Sulfate (Morphine Sulfate) Confirm Administered Dose 2 mg .ROUTE [facility] Stop: 09/14/18 13:59 Last Admin: 09/14/18 14:00 Dose: 2 mg Nicardipine HCl (Cardene) Confirm Administered Dose 25 mg .ROUTE .STK-MED ONE Stop: 09/14/18 10:16 Last Admin: 09/14/18 10:32 Dose: 25 mg Nitroglycerin (Nitro-Bid 2%) 0.5 inch EXT Q6H [facility] Stop: 10/13/18 19:59 Last Admin: 09/15/18 07:54 Dose: 0.5 inch Admin: 09/15/18 02:39 Dose: 0.5 inch Admin: 09/14/18 21:03 Dose: 0.5 inch Admin: 09/14/18 14:04 Dose: 0.5 inch Admin: 09/14/18 08:19 Dose: 0.5 inch Admin: 09/14/18 03:10 Dose: 0.5 inch Admin: 09/13/18 21:26 Dose: 0.5 inch Nitroglycerin/Dextrose (Nitroglycerin/D5w 100 Mcg/Ml 20ml Syringe) Confirm Administered Dose 2,000 mcg .ROUTE .STK-MED ONE Stop: 09/14/18 10:16 Last Admin: 09/14/18 10:32 Dose: 2,000 mcg Medical Decision Making Differential Diagnosis DDx: Acute coronary syndrome, pulmonary embolus, aortic dissection, musculoskeletal pain, pneumonia, pleural effusion, pneumothorax, GERD Medical Records Attestation: I reviewed the patient's medical records. Home Medications Current Medication List: was personally reviewed by me Laboratory Data Attestation: I reviewed the patient's lab results. Result diagrams: 09/13/18 08:30 09/14/18 07:00 Lab Results 09/13/18 09/13/18 09/13/18 Range/Units 08:30 08:30 08:30 WBC 5.27 (4.8-10.8) K/uL RBC 5.01 (4.7-6.1) M/uL Hgb 14.9 (14.0-18.0) g/dL Hct 44.5 (42-52) % MCV 88.8 (80-100) fL MCH 29.7 (25-34) pg MCHC 33.5 (32-36) g/dL RDW Std Deviation 44.1 (36.4-46.3) fL RDW Coeff of Ashlee 13.6 (11.5-14.5) % Plt Count 185 (130-400) K/uL MPV 11.3 H (7.4-10.4) fL Immature Gran % (Auto) 0.4 % Neut % (Auto) 54.5 % Lymph % (Auto) 34.7 % [place] % (Auto) 8.7 % Eos % (Auto) 1.3 % Baso % (Auto) 0.4 % Immature Gran # (Auto) 0.02 (0.00-0.02) K/uL Neut # (Auto) 2.87 (1.4-6.5) K/uL Lymph # (Auto) 1.83 (1.2-3.4) K/uL [place] # (Auto) 0.46 (0.11-0.59) K/uL Eos # (Auto) 0.07 (0-0.5) K/uL Baso # (Auto) 0.02 (0-0.2) K/uL PT 10.7 (9.0-12.0) Seconds INR 1.1 (0.9-1.1) Sodium 136 (136-145) mmol/L Potassium 3.7 (3.5-5.1) mmol/L Chloride 102 (98-107) mmol/L Carbon Dioxide 25 (21-32) mmol/L Anion Gap 9.0 (3-11) BUN 15 (7-18) mg/dl Creatinine 1.28 (0.6-1.4) mg/dl Est Cr Clr Drug Dosing 85.2 ml/min Est GFR ( Amer) 73.6 Est GFR (Non-Af Amer) 63.5 BUN/Creatinine Ratio 12.0 (10-20) Glucose 100 H (70-99) mg/dl Calcium 9.3 (8.5-10.1) mg/dl Total Bilirubin 0.9 (0.2-1) mg/dl AST 16 (15-37) U/L ALT 35 (12-78) U/L Alkaline Phosphatase 76 (45-117) U/L POC Troponin I (0-0.045) ng/ml Troponin I < 0.015 (0-0.045) ng/ml Total Protein 8.2 (6.4-8.2) gm/dl Albumin 4.3 (3.4-5.0) gm/dl Globulin 3.9 (2.5-4.0) gm/dl Albumin/Globulin Ratio 1.1 (0.9-2) Triglycerides Cholesterol LDL Cholesterol, Calc VLDL Cholesterol, Calc HDL Cholesterol Cholesterol/HDL Ratio Lipase 127 (73-393) U/L 09/13/18 09/13/18 09/13/18 Range/Units 08:33 16:55 22:53 WBC (4.8-10.8) K/uL RBC (4.7-6.1) M/uL Hgb (14.0-18.0) g/dL Hct (42-52) % MCV (80-100) fL MCH (25-34) pg MCHC (32-36) g/dL RDW Std Deviation (36.4-46.3) fL RDW Coeff of Ashlee (11.5-14.5) % Plt Count (130-400) K/uL MPV (7.4-10.4) fL Immature Gran % (Auto) % Neut % (Auto) % Lymph % (Auto) % [place] % (Auto) % Eos % (Auto) % Baso % (Auto) % Immature Gran # (Auto) (0.00-0.02) K/uL Neut # (Auto) (1.4-6.5) K/uL Lymph # (Auto) (1.2-3.4) K/uL [place] # (Auto) (0.11-0.59) K/uL Eos # (Auto) (0-0.5) K/uL Baso # (Auto) (0-0.2) K/uL PT (9.0-12.0) Seconds INR (0.9-1.1) Sodium (136-145) mmol/L Potassium (3.5-5.1) mmol/L Chloride (98-107) mmol/L Carbon Dioxide (21-32) mmol/L Anion Gap (3-11) BUN (7-18) mg/dl Creatinine (0.6-1.4) mg/dl Est Cr Clr Drug Dosing ml/min Est GFR ( Amer) Est GFR (Non-Af Amer) BUN/Creatinine Ratio (10-20) Glucose (70-99) mg/dl Calcium (8.5-10.1) mg/dl Total Bilirubin (0.2-1) mg/dl AST (15-37) U/L ALT (12-78) U/L Alkaline Phosphatase (45-117) U/L POC Troponin I < 0.03 (0-0.045) ng/ml Troponin I 0.042 0.021 (0-0.045) ng/ml Total Protein (6.4-8.2) gm/dl Albumin (3.4-5.0) gm/dl Globulin (2.5-4.0) gm/dl Albumin/Globulin Ratio (0.9-2) Triglycerides Cholesterol LDL Cholesterol, Calc VLDL Cholesterol, Calc HDL Cholesterol Cholesterol/HDL Ratio Lipase (73-393) U/L 09/14/18 09/14/18 Range/Units 07:00 07:00 WBC (4.8-10.8) K/uL RBC (4.7-6.1) M/uL Hgb (14.0-18.0) g/dL Hct (42-52) % MCV (80-100) fL MCH (25-34) pg MCHC (32-36) g/dL RDW Std Deviation (36.4-46.3) fL RDW Coeff of Ashlee (11.5-14.5) % Plt Count (130-400) K/uL MPV (7.4-10.4) fL Immature Gran % (Auto) % Neut % (Auto) % Lymph % (Auto) % [place] % (Auto) % Eos % (Auto) % Baso % (Auto) % Immature Gran # (Auto) (0.00-0.02) K/uL Neut # (Auto) (1.4-6.5) K/uL Lymph # (Auto) (1.2-3.4) K/uL [place] # (Auto) (0.11-0.59) K/uL Eos # (Auto) (0-0.5) K/uL Baso # (Auto) (0-0.2) K/uL PT (9.0-12.0) Seconds INR (0.9-1.1) Sodium 137 (136-145) mmol/L Potassium 4.0 (3.5-5.1) mmol/L Chloride 106 (98-107) mmol/L Carbon Dioxide 25 (21-32) mmol/L Anion Gap 6.0 (3-11) BUN 19 H (7-18) mg/dl Creatinine 1.20 (0.6-1.4) mg/dl Est Cr Clr Drug Dosing 90.8 ml/min Est GFR ( Amer) 79.5 Est GFR (Non-Af Amer) 68.6 BUN/Creatinine Ratio 16.1 (10-20) Glucose 106 H (70-99) mg/dl Calcium 8.6 (8.5-10.1) mg/dl Total Bilirubin (0.2-1) mg/dl AST (15-37) U/L ALT (12-78) U/L Alkaline Phosphatase (45-117) U/L POC Troponin I (0-0.045) ng/ml Troponin I (0-0.045) ng/ml Total Protein (6.4-8.2) gm/dl Albumin (3.4-5.0) gm/dl Globulin (2.5-4.0) gm/dl Albumin/Globulin Ratio (0.9-2) Triglycerides Cancelled 419 H Cholesterol Cancelled 167 LDL Cholesterol, Calc Cancelled VLDL Cholesterol, Calc Cancelled HDL Cholesterol Cancelled 27 Cholesterol/HDL Ratio Cancelled 6 Lipase (73-393) U/L Imaging Data Radiologist's Impression: Radiology results as stated below per my review and the radiologist's interpretation: XR chest 1V portable CLINICAL HISTORY: Chest Pain COMPARISON STUDY: Chest radiograph and chest CT May 10, 2011. FINDINGS: There is no pneumothorax or pleural effusion. There is no consolidation or evidence for pulmonary edema. Cardiomediastinal silhouette is stable. Appearance of the chest is unchanged. IMPRESSION: No acute cardiopulmonary findings. Electronically signed by: Stu Hughes M.D. 09/13/2018 9:07 AM ECG Data Attestation: I personally reviewed and interpreted this ECG as follows: Indication: chest pain Rate (beats per minute): 71 Rhythm: normal sinus Findings: + other (Repolarization abnormality. ), + RBBB and + left axis deviation; no PAC, no PVC, no ST depression and no ST elevation Blood Pressure Blood Pressure Findings: Elevated blood pressure Blood Pressure Disposition: further management by hospitalist MDM Narrative This pt was evaluated and appeared to be in no distress. IV access was obtained and lab work was drawn. Pt was placed on the quality assurance monitor body. EKG reveals RBBB without acute changes, but no previous for comparison. Pt was given ASA to chew. He is noted to be hypertensive, given IV hydralazine. CXR is clear. Lab work reveals negative troponin. He has significant risk factors and a story concerning for ACS. Case was d/w the hospitalist service for further management. Pt and family are aware of the plan and agree. Impression & Plan Substernal chest pain, Chest pain radiating to jaw Discharge Plan Visit Data *Final* Discharge Date/Time: 09/13/18 11:36 Chief Complaint: Cardiac Assessment Stated Complaint: CHEST DISCOMFORT ED Provider: Jenise Ray Discharge Problem: Substernal chest pain, Chest pain radiating to jaw Patient Disposition: Admitted As Inpatient Discharge Instructions Interventions: ED Discharge Assessment Last Done: 09/13/18 11:36 The scribe's documentation has been prepared under my direction and personally reviewed by me in its entirety. I confirm that the note above accurately reflects all work, treatment, procedures, and medical decision making performed by me.
--- NOTE | 2018-09-13 15:48 | Cardiology Consultation ---
Date of Consultation September 13, 2018 Assessment & Plan (1) Chest pain radiating to jaw: Patient presented with intermittent chest pressure over the last 3 days. The discomfort can occur with walking or at rest. His initial troponin was negative, and ECG shows no acute ischemic changes. Echocardiogram shows normal LV wall motion and systolic function. Recommend continuing to trend cardiac enzymes. If his enzymes remain negative, will plan a stress echocardiogram in the morning for further evaluation. He should remain NPO after midnight. (2) HTN (hypertension): His blood pressure was elevated at 181/112 mmHg on arrival. He was treated with IV labetalol and IV hydralazine with improvement. His most recent pressure was normotensive at 126/79. His chest discomfort symptoms could possibly have been related to the elevated blood pressure, and recommend optimal BP control moving forward. Will therefore increase his losartan to 100 mg daily. He will continue HCTZ 12.5 mg daily. Will also continue Verapamil 180 mg daily, but will have him hold the dose in the morning in anticipation of his stress echo. Patient was discussed with Dr. Padilla. Supervising Physician Co-Signing Physician Notes Patient was seen and examined. Please see my note under separate cover due to changes in patient's labs and clinical course. The detailed plan of my separate consultation is noted below. ASSESSMENT/PLAN: 1. Chest Pain/Possible Angina: Although his symptoms are not necessarily classic as he has had intermittent right chest pain. There is concern that pain started as exertional and has since involved to occasional rest pain. He also had diaphoresis with ashen valerio color this morning. His chest discomfort is concerning enough for angina. Although his troponin is not elevated, his second troponin has changed from being undetectable to 0.042, just below abnormal levels. His next troponin is pending. Given this change in troponin and concerning symptoms with family history of CAD, it is reasonable to proceed to cardiac catheterization. Risks and benefits were discussed with he and his . They are made aware that CT surgery is not available at this facility. He and his would prefer to pursue cardiac catheterization rather than stress testing at this time. We discussed the fact that stress testing is an option if his next troponin does not further increase but that if his stress test is negative, we may consider cardiac catheterization in the future if his symptoms persist. They prefer cardiac catheterization. NPO after midnight. Because he does have intermittent symptoms here, nitroglycerin paste ordered. Metoprolol 25 mg twice daily ordered. High-intensity statin therapy ordered. Continue aspirin. If his troponin becomes more elevated overnight, consider heparin drip. 2. Hypertension: Beta-james initiated as above. Most recent blood pressure is normal. 3. Disposition: Cardiology will continue to follow. Highly complex medical issues as above. Thank you for allowing me to participate in the care of your patient. Please call for any other questions or concerns. Sincerely, Jordon Padilla M.D. History of Present Illness Reason for Consultation: Chest pain Requesting Physician: Dr. Walter Attending Physician: Dr. Padilla History of Present Illness Mr. Barajas is a 53-year-old male with a past medical history significant for hypertension and dyslipidemia who was admitted earlier today in the setting of chest pain. The patient states that 3 days ago, he began noting intermittent left-sided chest pressure. He has associated "tingling" or "cool sensation" which goes into his throat and jaw with the discomfort, and he also feels as though he needs to take a deep breath. The chest discomfort can occur with prolonged walking and resolves within 10-15 minutes of rest. He has also noted the discomfort at rest, which lasts about 5-15 minutes. He denies any association with food, and he has not tried any OTC medications to help provide relief of his symptoms. This morning, he had a more prolonged episode lasting about an hour in duration. His , who accompanies him, also states that he appeared valerio and diaphoretic. He therefore presented to the ED for further evaluation. His first troponin was negative. ECG shows sinus rhythm with right bundle branch block, but no acute ischemic changes. He was hypertensive with a blood pressure of 181/112 mmHg, and he was given IV hydralazine and IV labetalol with improvement in his pressure. He reports that he has continued to note intermittent chest pressure since being admitted. The pressure can now occur on the left or right side of his chest, but he states that it is not as severe. He denies shortness of breath or edema. He denies palpitations, lightheadedness, syncope, or presyncope. He denies abnormal bleeding such as melena, hematochezia, or hematuria. He denies cerebrovascular symptoms. He denies fevers chills, cough, or wheezing. He denies GI or symptoms. Review of Systems: As noted in HPI. All other 10 point ROS are reviewed and otherwise negative at this time. Past medical history: 1. Hypertension 2. Dyslipidemia 3. Right rotator cuff repair 4. Pilonidal cyst removal Family history: His mother has atrial fibrillation. His father has had 2 MIs and coronary stents placed; his first PR occurred in his 50s. His paternal uncle had a PR at the age of 67. Social history: He is with 4 children. 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 He denies smoking or illicit drug use. Rare alcohol use. Allergies Allergy/AdvReac Type Severity Reaction Status Date / Time No Known Allergies Allergy NONE Verified 09/13/18 08:27 Home Medications Home Medications Medication Instructions Recorded Confirmed Type losartan-hydrochlorothiazide 1 tab PO QAM 09/13/18 09/13/18 History omega 7-wwz-cwg-fish oil [Fish Oil] 1 cap PO QAM 09/13/18 09/13/18 History verapamil 180 mg PO QAM 09/13/18 09/13/18 History Patient History Medical History Hypertensive urgency Obesity Substernal chest pain (Acute) HTN (hypertension) Surgical History History of excision of pilonidal cyst History of repair of rotator cuff Family History Father Heart attack, Onset Age: 55 Uncle Heart attack, Onset Age: 68 Mother Afib HTN (hypertension), benign Grandfather (Maternal) HTN (hypertension), benign Social History marital status: Current Living Situation: Spouse and Family current occupational status: employed 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 [employer] Other Information That Helps Us Care for You: No Feels Safe at Home: Yes Safety Concerns: Feels Safe At This Time Smoking Status: Never smoker Do You Dip or Chew Tobacco: Yes (snuff occ) Hx Alcohol Use: No Hx Substance Use: No Beliefs That Will Affect Care: None Preferred Language: Djiboutian Communication Ability: Effective Physical Exam 2 Vital Signs (Past 24 Hours): Last Vital Signs Temp 36.8 C 09/13/18 15:16 Pulse 71 09/13/18 15:16 Resp 18 09/13/18 15:16 BP 126/79 09/13/18 15:16 Pulse Ox 96 09/13/18 15:16 Constitutional: Alert, oriented, in no acute distress HEENT: Head is atraumatic and normocephalic. EOMs intact. Sclera anicteric. Face is symmetric. No perioral cyanosis. Mucous membranes moist. Neck: Supple, no JVD, no carotid bruits Pulmonary: Normal respiratory effort, clear to auscultation bilaterally Cardiac: Regular rate and rhythm, normal S1 and S2, no gallops, no rubs, no murmurs Extremities: No clubbing, cyanosis, or edema. Pulses 2+ and symmetric Abdomen: Normal bowel sounds, soft, non-tender, no abdominal mass palpated Skin: Normal skin color, turgor, and pigmentation, no rash, no skin lesions Neurological: Oriented to person, place, and time Results & Data Laboratory Results Laboratory Results WBC 5.27 K/uL (4.8-10.8) 09/13/18 08:30 RBC 5.01 M/uL (4.7-6.1) 09/13/18 08:30 Hgb 14.9 g/dL (14.0-18.0) 09/13/18 08:30 Hct 44.5 % (42-52) 09/13/18 08:30 MCV 88.8 fL (80-100) 09/13/18 08:30 MCH 29.7 pg (25-34) 09/13/18 08:30 MCHC 33.5 g/dL (32-36) 09/13/18 08:30 RDW Std Deviation 44.1 fL (36.4-46.3) 09/13/18 08:30 RDW Coeff of Ashlee 13.6 % (11.5-14.5) 09/13/18 08:30 Plt Count 185 K/uL (130-400) 09/13/18 08:30 MPV 11.3 fL (7.4-10.4) H 09/13/18 08:30 Immature Gran % (Auto) 0.4 % 09/13/18 08:30 Neut % (Auto) 54.5 % 09/13/18 08:30 Lymph % (Auto) 34.7 % 09/13/18 08:30 [place] % (Auto) 8.7 % 09/13/18 08:30 Eos % (Auto) 1.3 % 09/13/18 08:30 Baso % (Auto) 0.4 % 09/13/18 08:30 Immature Gran # (Auto) 0.02 K/uL (0.00-0.02) 09/13/18 08:30 Neut # (Auto) 2.87 K/uL (1.4-6.5) 09/13/18 08:30 Lymph # (Auto) 1.83 K/uL (1.2-3.4) 09/13/18 08:30 [place] # (Auto) 0.46 K/uL (0.11-0.59) 09/13/18 08:30 Eos # (Auto) 0.07 K/uL (0-0.5) 09/13/18 08:30 Baso # (Auto) 0.02 K/uL (0-0.2) 09/13/18 08:30 PT 10.7 Seconds (9.0-12.0) 09/13/18 08:30 INR 1.1 (0.9-1.1) 09/13/18 08:30 Sodium 136 mmol/L (136-145) 09/13/18 08:30 Potassium 3.7 mmol/L (3.5-5.1) 09/13/18 08:30 Chloride 102 mmol/L (98-107) 09/13/18 08:30 Carbon Dioxide 25 mmol/L (21-32) 09/13/18 08:30 Anion Gap 9.0 (3-11) 09/13/18 08:30 BUN 15 mg/dl (7-18) 09/13/18 08:30 Creatinine 1.28 mg/dl (0.6-1.4) 09/13/18 08:30 Est Cr Clr Drug Dosing 85.2 ml/min 09/13/18 08:30 Est GFR ( Amer) 73.6 09/13/18 08:30 Est GFR (Non-Af Amer) 63.5 09/13/18 08:30 BUN/Creatinine Ratio 12.0 (10-20) 09/13/18 08:30 Glucose 100 mg/dl (70-99) H 09/13/18 08:30 Calcium 9.3 mg/dl (8.5-10.1) 09/13/18 08:30 Total Bilirubin 0.9 mg/dl (0.2-1) 09/13/18 08:30 AST 16 U/L (15-37) 09/13/18 08:30 ALT 35 U/L (12-78) 09/13/18 08:30 Alkaline Phosphatase 76 U/L (45-117) 09/13/18 08:30 POC Troponin I < 0.03 ng/ml (0-0.045) 09/13/18 08:33 Troponin I < 0.015 ng/ml (0-0.045) 09/13/18 08:30 Total Protein 8.2 gm/dl (6.4-8.2) 09/13/18 08:30 Albumin 4.3 gm/dl (3.4-5.0) 09/13/18 08:30 Globulin 3.9 gm/dl (2.5-4.0) 09/13/18 08:30 Albumin/Globulin Ratio 1.1 (0.9-2) 09/13/18 08:30 Lipase 127 U/L (73-393) 09/13/18 08:30 Diagnostic Findings Echo 09/13/2018: Normal LV size, wall motion and systolic function. EF 55-60%. Mild concentric LVH. Grade I diastolic dysfunction. No significant valvular abnormalities. CXR: No acute cardiopulmonary findings. ECG: Normal sinus rhythm. Left axis deviation. Right bundle branch block. Telemetry monitoring: Sinus rhythm in the 60-70s. IVCD. _ (1) HTN (hypertension) Hypertension type: essential hypertension Qualified Code(s): I10 - Essential (primary) hypertension
[2018-09-13] MEDS: ENOXAPARIN INJ 40 MG/0.4 ML SYR SQ SCH (16:32)
--- NOTE | 2018-09-13 20:14 | Cardiology Consultation ---
Date of Consultation September 13, 2018 Assessment & Plan (1) Exertional angina: Although his symptoms are not necessarily classic as he has had intermittent right chest pain. There is concern that pain started as exertional and has since involved to occasional rest pain. He also had diaphoresis with ashen valerio color this morning. His chest discomfort is concerning enough for angina. Although his troponin is not elevated, his second troponin has changed from being undetectable to 0.042, just below abnormal levels. His next troponin is pending. Given this change in troponin and concerning symptoms with family history of CAD, it is reasonable to proceed to cardiac catheterization. Risks and benefits were discussed with he and his . They are made aware that CT surgery is not available at this facility. He and his would prefer to pursue cardiac catheterization rather than stress testing at this time. We discussed the fact that stress testing is an option if his next troponin does not further increase but that if his stress test is negative, we may consider cardiac catheterization in the future if his symptoms persist. They prefer cardiac catheterization. NPO after midnight. Because he does have intermittent symptoms here, nitroglycerin paste ordered. Metoprolol 25 mg twice daily ordered. High-intensity statin therapy ordered. Continue aspirin. If his troponin becomes more elevated overnight, consider heparin drip. (2) HTN (hypertension): Beta-james initiated as above. Most recent blood pressure is normal. 3. Disposition: Cardiology will continue to follow. Highly complex medical issues as above. Thank you for allowing me to participate in the care of your patient. Please call for any other questions or concerns. Sincerely, Jordon Padilla M.D. History of Present Illness Reason for Consultation: Chest pain Requesting Physician: Dr. Walter Attending Physician: Phylicia Walter MD History of Present Illness Mr. Barajas is a pleasant 53-year-old gentleman with history significant for hypertension and dyslipidemia who was admitted for chest discomfort. He was seen earlier today by Brinda De La Torre PA-C of cardiology. Please see her note for medical history and other details. He was personally evaluated this evening after his second troponin was drawn. His was present at the bedside. He has had 3 days of intermittent chest discomfort. The first episode occurred while ambulating. It was a left-sided chest burning that radiated to his neck and jaw. There was no diaphoresis but felt as though he had to take a deep breath. It resolved within 10 minutes of rest. Since then he continues to have intermittent exertional chest pain. On rare occasion, he would have chest discomfort while sitting. This occurred yesterday for the first time. He also has had occasional left-sided or even right-sided chest pain while laying in his hospital bed, however short-lived. He came to the hospital today because while walking to his truck he had another episode and when he walked back into the house his noted that he was ashen valerio in appearance and also diaphoretic. They came to the hospital for further evaluation. Prior to the 3 days of symptoms, he has not had any other chest discomfort. He denies syncope, near-syncope, orthopnea, edema, or bleeding. His is quite concerned about his symptoms. She states that they live a very stressful life. They have 4 children at home and his job is also stressful. Review of systems: As above. Review of systems otherwise negative/ unremarkable. Family history: Father had 2 MIs and PCI. His first UT occurred in his 50s. Paternal uncle had UT at the age of 67. Mother with AFib. Social history: Denies tobacco, alcohol, or drug abuse. He is and lives at home with his and 4 children. 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 His is present at the bedside. Allergies Allergy/AdvReac Type Severity Reaction Status Date / Time No Known Allergies Allergy NONE Verified 09/13/18 08:27 Home Medications Home Medications Medication Instructions Recorded Confirmed Type losartan-hydrochlorothiazide 1 tab PO QAM 09/13/18 09/13/18 History omega 7-maw-neu-fish oil [Fish Oil] 1 cap PO QAM 09/13/18 09/13/18 History verapamil 180 mg PO QAM 09/13/18 09/13/18 History Patient History Medical History Hypertensive urgency Obesity Substernal chest pain (Acute) HTN (hypertension) Surgical History History of excision of pilonidal cyst History of repair of rotator cuff Family History Father Heart attack, Onset Age: 55 Uncle Heart attack, Onset Age: 68 Mother Afib HTN (hypertension), benign Grandfather (Maternal) HTN (hypertension), benign Social History marital status: Current Living Situation: Spouse and Family current occupational status: employed 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 Alert and oriented. HEENT: Anicteric sclera. Neck: No JVD. No bruits. Normal carotid upstrokes bilaterally. Cardiac: PMI was nondisplaced. No ventricular heave. Regular rate and rhythm. Normal S1-S2. No murmurs, rubs, or gallops. Pulmonary: Clear to auscultation bilaterally without wheezes, rales, or rhonchi. Abdomen: Soft, nontender, nondistended, with normoactive bowel sounds. No bruits noted. Extremities: 2+ radial pulses bilaterally; Allens's ok. 2+ femoral pulses bilaterally; no bruit. 2+ posterior tibialis pulses bilaterally. No edema or cyanosis. Psychiatric: Affect appears appropriate. Chest: Nontender to palpation. Results & Data Laboratory Results Laboratory Results - last 24 hr 09/13/18 09/13/18 09/13/18 08:30 08:30 08:30 WBC 5.27 RBC 5.01 Hgb 14.9 Hct 44.5 MCV 88.8 MCH 29.7 MCHC 33.5 RDW Std Deviation 44.1 RDW Coeff of Ashlee 13.6 Plt Count 185 MPV 11.3 H Immature Gran % (Auto) 0.4 Neut % (Auto) 54.5 Lymph % (Auto) 34.7 [place] % (Auto) 8.7 Eos % (Auto) 1.3 Baso % (Auto) 0.4 Immature Gran # (Auto) 0.02 Neut # (Auto) 2.87 Lymph # (Auto) 1.83 [place] # (Auto) 0.46 Eos # (Auto) 0.07 Baso # (Auto) 0.02 PT 10.7 INR 1.1 Sodium 136 Potassium 3.7 Chloride 102 Carbon Dioxide 25 Anion Gap 9.0 BUN 15 Creatinine 1.28 Est Cr Clr Drug Dosing 85.2 Est GFR ( Amer) 73.6 Est GFR (Non-Af Amer) 63.5 BUN/Creatinine Ratio 12.0 Glucose 100 H Calcium 9.3 Total Bilirubin 0.9 AST 16 ALT 35 Alkaline Phosphatase 76 POC Troponin I Troponin I < 0.015 Total Protein 8.2 Albumin 4.3 Globulin 3.9 Albumin/Globulin Ratio 1.1 Lipase 127 09/13/18 09/13/18 08:33 16:55 WBC RBC Hgb Hct MCV MCH MCHC RDW Std Deviation RDW Coeff of Ashlee Plt Count MPV Immature Gran % (Auto) Neut % (Auto) Lymph % (Auto) [place] % (Auto) Eos % (Auto) Baso % (Auto) Immature Gran # (Auto) Neut # (Auto) Lymph # (Auto) [place] # (Auto) Eos # (Auto) Baso # (Auto) PT INR Sodium Potassium Chloride Carbon Dioxide Anion Gap BUN Creatinine Est Cr Clr Drug Dosing Est GFR ( Amer) Est GFR (Non-Af Amer) BUN/Creatinine Ratio Glucose Calcium Total Bilirubin AST ALT Alkaline Phosphatase POC Troponin I < 0.03 Troponin I 0.042 Total Protein Albumin Globulin Albumin/Globulin Ratio Lipase Diagnostic Findings Telemetry personally reviewed: No arrhythmia. Sinus rhythm. ECG 09/13/2018 personally reviewed: Sinus rhythm 71 bpm. Left axis deviation. RBBB. Echo 09/13/2018: Normal LV size, wall motion, systolic function. EF 55-60%. Type 1 diastolic dysfunction. Mild LVH. No significant valvular abnormalities. Medications Administered Current Inpatient Medications Acetaminophen (Tylenol) 650 mg PO Q4H PRN PRN Reason: Pain or Fever Stop: 10/13/18 11:55 Last Admin: 09/13/18 13:12 Dose: 650 mg Al Hydrox/Mg Hydrox/Simethicone (Maalox) 15 ml PO Q4H PRN PRN Reason: Dyspepsia Stop: 10/13/18 11:55 Aspirin (Ecotrin Ectab) 81 mg PO QAM [facility] Stop: 10/14/18 08:59 Atorvastatin Calcium (Lipitor) 40 mg PO HS [facility] Stop: 10/13/18 20:59 Enoxaparin Sodium (Lovenox) 40 mg SQ Q24H [facility] Stop: 10/13/18 15:59 Last Admin: 09/13/18 16:32 Dose: 40 mg Hydrochlorothiazide (Hctz) 12.5 mg PO QAM [facility] Stop: 10/14/18 08:59 Labetalol HCl (Normodyne) 10 mg IV Q4H PRN PRN Reason: SBP>180 or SBP>110 Stop: 10/13/18 13:59 [facility]) [facility]: 10/14/18 08:59 Metoprolol Tartrate (Lopressor) 25 mg PO BID [facility] Stop: 10/13/18 20:59 Nitroglycerin (Nitrostat) 0.4 mg SL UD PRN PRN Reason: Chest Pain Stop: 10/13/18 11:55 Nitroglycerin (Nitro-Bid 2%) 0.5 inch EXT Q6H [facility] Stop: 10/13/18 19:59 Ondansetron HCl (Zofran) 4 mg IV Q6H PRN PRN Reason: Nausea Stop: 10/13/18 11:55 Polyethylene Glycol (Miralax Powder Packet) 17 gm PO DAILY PRN PRN Reason: Constipation Stop: 10/13/18 11:55 _ (1) HTN (hypertension) Hypertension type: essential hypertension Qualified Code(s): I10 - Essential (primary) hypertension
[2018-09-13] MEDS ORDERED: ATORVASTATIN 40 MG TAB PO SCH (21:00)
[2018-09-13] MEDS: NITROGLYCERIN 2% OINTMENT 30GM TUBE EXT SCH (21:26)
[2018-09-13] MEDS: METOPROLOL TARTRATE 25 MG TAB PO SCH (21:28)
[2018-09-14] MEDS: NITROGLYCERIN 2% OINTMENT 30GM TUBE EXT SCH ×4 (03:10→21:03)
[2018-09-14 07:54] LABS: BUN Creatinine Ratio 16.1 (10-20); Calcium 8.6 mg/dl (8.5-10.1); Creatinine Clr Calc Pharmacy 90.8 ml/min; Est GFR (African American) 79.5; Est GFR (Non-African American) 68.6
[2018-09-14] MEDS: LOSARTAN POTASSIUM 50 MG TAB PO SCH (08:13)
[2018-09-14] MEDS: ASPIRIN 81 MG ECTAB PO SCH (08:14)
[2018-09-14] MEDS: hydroCHLOROthiazide 25 MG TAB PO SCH (08:14)
[2018-09-14] MEDS: METOPROLOL TARTRATE 25 MG TAB PO SCH ×2 (08:14→20:59)
[2018-09-14] MEDS: ACETAMINOPHEN 325 MG TAB PO PRN ×2 (08:16→21:03)
[2018-09-14] MEDS ORDERED: VERAPAMIL HCL 180 MG TABCR PO SCH (09:00)
[2018-09-14] MEDS ORDERED: LOSARTAN POTASSIUM 50 MG TAB PO SCH (09:00)
[2018-09-14] MEDS ORDERED: LOSARTAN/HCTZ 50/12.5MG TAB PO SCH (09:00)
[2018-09-14] MEDS ORDERED: LIDOCAINE HCL 1% 20 ML VIAL ONE (10:13)
[2018-09-14] MEDS ORDERED: fentaNYL citrate 100 MCG/2 ML VIAL ONE (10:15)
[2018-09-14] MEDS ORDERED: MIDAZOLAM HCL 1 MG/ML 2ML VIAL ONE ×2 (10:15→11:06)
[2018-09-14] MEDS ORDERED: NiCARDipine HCL INJ 2.5 MG/ML 10 ML AMP ONE (10:15)
[2018-09-14] MEDS ORDERED: HEPARIN (PORCINE) 1000 UNIT/ML 10 ML (CATH LAB USE ONLY) ONE ×2 (10:15→11:27)
[2018-09-14] MEDS ORDERED: NITROGLYCERIN/D5W 100MCG/ML 20ML SYR ONE (10:15)
--- NOTE | 2018-09-14 10:19 | Pre Anesthesia Assessment ---
Date of Service September 14, 2018 Pre Sedation Assessment Vital Signs Temp Pulse Pulse Resp BP BP Pulse Ox 09/14/18 07:16 36.8 C 63 19 134/82 09/14/18 04:28 36.9 C 64 17 112/70 97 09/14/18 03:08 130/76 09/14/18 00:14 36.4 C L 62 18 118/73 96 09/13/18 23:09 84 09/13/18 21:25 79 134/83 09/13/18 20:14 36.8 C 74 17 125/79 95 09/13/18 15:16 36.8 C 71 18 126/79 96 09/13/18 11:56 36.4 C L 65 16 142/90 H 96 09/13/18 11:36 73 18 127/90 96 09/13/18 10:53 64 18 146/92 H 96 Cardiovascular RRR, no murmur, no edema Respiratory normal respiratory effort, lungs clear to auscultation Pre-Sedation Airway Assessment Smoking Status: Never smoker Mallampati Class: II ASA: ASA3 NPO Status Date of Last Intake of Fluids: 09/13/18 Time of Last Intake of Fluids: 23:00 Date of Last Intake of Solid Food: 09/13/18 Time of Last Intake of Solid Foods: 23:00 Procedure Planning Contraindications for Sedation: none Current Medications Reviewed: Yes Notes The planned sedation has been discussed with the patient. Informed Consent was obtained. I have identified the patient, determined the appropriateness of sedation and have assessed the patient immediately prior to the procedure. All medicine(s) and interventions are by my order.
--- NOTE | 2018-09-14 11:41 | Cardiac Catheterization ---
Cardiac Cath Procedure Full Procedure Date September 14, 2018 Pre-Procedure Diagnosis Pre-Procedure Diagnosis: Acute Coronary Syndrome AUC Score AUC Score: 7 Post-Procedure Diagnosis Post-Procedure Diagnosis: Severe CAD and Normal Intracardiac Pressures Procedure(s) Performed Procedure(s) Performed: Coronary Angiography and Left Heart Cath Temperature Regulator Saul Padilla MD Pit Boss(s) Rosibel Hamm and Lilia Rubin Estimated Blood Loss Estimated Blood Loss: < 25 ml Medication(s) Medication(s): Fentanyl, Heparin, Lidocaine 1%, Nicardipine and Versed Summary of Findings Coronary angiography: 1. Left main coronary artery: The LMCA is large in caliber. There is no obstructive CAD. 2. Left anterior descending: The LAD is a very large caliber vessel that wraps around the apex. There are calcifications noted within the proximal LAD but more specifically proximal D1. Mid LAD 80-90% stenosis, involving bifurcation of large D2. JOSÉ MIGUEL 2 flow involving the mid to distal LAD. Ostial to proximal 50-60%. Ostial proximal D2 50%. Small D3. Remainder of LAD without significant CAD. 3. Circumflex: Circumflex is a large caliber vessel. It gives rise to a very small caliber OM1 and small caliber OM2. No significant CAD within the circumflex. 4. Right coronary artery: The RCA is large and dominant. Proximal RCA 20%. Mid RCA 30%. Distal RCA 20%. Large PL and PDA without significant CAD. 5. Ramus intermedius: There is a very small caliber ramus vessel without significant CAD. Left heart catheterization: 1. Left ventriculography was not performed. 2. No aortic stenosis. Peak to peak gradient across the aortic valve was 0. 3. Normal LVEDP; 9mmHg. Sedation start time: 10:23 a.m. Sedation end time: 11:03 a.m. Procedural notes: 1. Coronary angiography was performed via the right radial artery. 2. A 6 [place]uneian AL2 diagnostic catheter was used to selectively engage the LMCA. 3. A 6 Bruneian AR 1 diagnostic catheter was used to selectively engage the RCA. Impression: 1. Severe CAD involving the mid LAD (JOSÉ MIGUEL 2 flow). 2. Moderate nonobstructive disease involving the D1 and D2 vessels. 3. Mild nonobstructive CAD involving dominant RCA. 4. No aortic stenosis. 5. Normal LVEDP. Plan: 1. Images were reviewed with transition advisor, Dr. Frye, who plans to perform PCI of the mid LAD. 2. Optimize medical therapy. Hemodynamics Rest Ao:: 119/75 Final Ao: 119/75 LV: 122/0/9 Recommendations Recommendations: PCI without planned CABG Specimens Specimens: None Radiation Exposure (mGy) 2787 mGy. Fluoro time 13.1 min. Contrast (mls) 115 ml Optiray Procedural Complication(s) None Disposition Mortician Investigator Holding/Recovery (Remains in laborer driver for PCI) ACC Data: Mortician Investigator Cardiac Status Clinical evaluation leading to the procedure CAD Presenation: Unstable angina Anginal Classification: CCS IV Heart Failure: No Cardiogenic Shock within 24 Hours: No Cardiac Arrest within 24 Hours: No Imaging Studies Past 6 Months: Yes (echo) Stress Studies Past 6 Months: No Standard Exercise Test: No Stress Echocardiogram: No Stress Testing w/SPECT MPI: No Cardiac CTA: No Coronary Anatomy Dominant: Right Left Main (% Stenosis): Normal LAD (% Stenosis): Mid (80-90% with JOSÉ MIGUEL 2 flow) D1 (% Stenosis): Ostial (Ostial to proximal 50-60% with calcifications) D2 (% Stenosis): Ostial (Ostial to proximal 50%) D3 (% Stenosis): Normal Circumflex (% Stenosis): Normal OM1 (% Stenosis): Normal OM2 (% Stenosis): Normal RCA (% Stenosis): Proximal (20%), Mid (30%) and Distal (20%) R PDA (% Stenosis): Normal R PL1 (% Stenosis): Normal Left Ventricular Angiography EF (%): n/a Diagnostic Physicians Name: Saul Padilla MD Status: Elective Closure Device Percutaneous Entry Location: Radial Closure Device: Radial Band (after PCI is completed by Dr. Frye) Recommendations: PCI without planned CABG
--- NOTE | 2018-09-14 11:58 | Cardiology Progress Note ---
Date of Service September 14, 2018 Assessment & Plan (1) CAD (coronary artery disease), [place] coronary artery: Severe CAD involving the mid LAD. He has undergone PCI of mid LAD by Dr. Frye. Dr. Frye is currently completing the case. Aspirin 81 mg daily indefinitely. Dual anti-platelet agent also recommended. Dr. Frye will determine which agent. Continue high-intensity statin therapy. Continue beta- james. Continue ARB. (2) Unstable angina: Coronary angiography was performed today demonstrating severe mid LAD stenosis. Plan as above. No further symptoms. (3) HTN (hypertension): Blood pressure is normal. Would recommend metoprolol in place of verapamil upon discharge. Continue ARB. (4) Dyslipidemia: Lipids are not well controlled. High-intensity statin therapy strongly recommended. Atorvastatin 80 mg p.o. q.h.s.. Disposition: I will be away from the hospital for the next 2 days. A follow- up appointment is being scheduled in the cardiology office for next week. Please call with any questions or concerns. He should remain hospitalized tonight. Subjective Last evening, beta-james and nitrate therapy was initiated. He has not had any further chest discomfort since then. He denies shortness of breath, palpitations, syncope, near-syncope, edema, or bleeding. He went for cardiac catheterization this morning. He was found to have severe mid LAD stenosis with otherwise nonobstructive CAD involving diagonal vessels and RCA. PCI performed by Dr. Frye. Review of systems: As above. Physical Exam 2 Vital Signs (Past 24 Hours): Last Vital Signs Temp 36.8 C 09/14/18 07:16 Pulse 63 09/14/18 07:16 Resp 19 09/14/18 07:16 BP 134/82 09/14/18 07:16 Pulse Ox 97 09/14/18 04:28 Physical Exam: Gen.: No acute distress. Alert and oriented. HEENT: Anicteric sclera. Neck: No JVD. Cardiac: Regular. Normal S1-S2. No murmurs, rubs, or gallops. Pulmonary: Clear to auscultation bilaterally without wheezes, rales, or rhonchi. Abdomen: Soft, nontender, nondistended, with normoactive bowel sounds. No bruits noted. Extremities: No edema or cyanosis. Psychiatric: Affect appears appropriate. Results & Data Laboratory Results Laboratory Results - last 24 hr 09/13/18 09/13/18 09/13/18 08:30 16:55 22:53 PT 10.7 INR 1.1 Sodium Potassium Chloride Carbon Dioxide Anion Gap BUN Creatinine Est Cr Clr Drug Dosing Est GFR ( Amer) Est GFR (Non-Af Amer) BUN/Creatinine Ratio Glucose Calcium Troponin I 0.042 0.021 Triglycerides Cholesterol LDL Cholesterol, Calc VLDL Cholesterol, Calc HDL Cholesterol Cholesterol/HDL Ratio 09/14/18 09/14/18 07:00 07:00 PT INR Sodium 137 Potassium 4.0 Chloride 106 Carbon Dioxide 25 Anion Gap 6.0 BUN 19 H Creatinine 1.20 Est Cr Clr Drug Dosing 90.8 Est GFR ( Amer) 79.5 Est GFR (Non-Af Amer) 68.6 BUN/Creatinine Ratio 16.1 Glucose 106 H Calcium 8.6 Troponin I Triglycerides Cancelled 419 H Cholesterol Cancelled 167 LDL Cholesterol, Calc Cancelled VLDL Cholesterol, Calc Cancelled HDL Cholesterol Cancelled 27 Cholesterol/HDL Ratio Cancelled 6 Diagnostic Findings Cardiac catheterization 09/14/2018: Severe mid LAD stenosis with otherwise nonobstructive CAD involving diagonal vessels and RCA. PCI of LAD performed by Dr. Frye. Telemetry personally reviewed: No arrhythmia. Sinus rhythm. ECG personally reviewed 09/14/2018 7:03 a.m.: Sinus rhythm 62 bpm. RBBB. Anterior T-wave inversion. Medications Administered Current Inpatient Medications Acetaminophen (Tylenol) 650 mg PO Q4H PRN PRN Reason: Pain or Fever Stop: 10/13/18 11:55 Last Admin: 09/14/18 08:16 Dose: 650 mg Al Hydrox/Mg Hydrox/Simethicone (Maalox) 15 ml PO Q4H PRN PRN Reason: Dyspepsia Stop: 10/13/18 11:55 Aspirin (Ecotrin Ectab) 81 mg PO QAM [facility] Stop: 10/14/18 08:59 Last Admin: 09/14/18 08:14 Dose: 81 mg Atorvastatin Calcium (Lipitor) 40 mg PO HS [facility] Stop: 10/13/18 20:59 Last Admin: 09/13/18 21:28 Dose: 40 mg Enoxaparin Sodium (Lovenox) 40 mg SQ Q24H [facility] Stop: 10/13/18 15:59 Last Admin: 09/13/18 16:32 Dose: 40 mg Hydrochlorothiazide (Hctz) 12.5 mg PO QAM [facility] Stop: 10/14/18 08:59 Last Admin: 09/14/18 08:14 Dose: 12.5 mg Labetalol HCl (Normodyne) 10 mg IV Q4H PRN PRN Reason: SBP>180 or SBP>110 Stop: 10/13/18 13:59 Losartan Potassium (Cozaar) 50 mg PO QAM [facility] Stop: 10/14/18 08:59 Last Admin: 09/14/18 08:13 Dose: 50 mg Metoprolol Tartrate (Lopressor) 25 mg PO BID [facility] Stop: 10/13/18 20:59 Last Admin: 09/14/18 08:14 Dose: 25 mg Nitroglycerin (Nitrostat) 0.4 mg SL UD PRN PRN Reason: Chest Pain Stop: 10/13/18 11:55 Nitroglycerin (Nitro-Bid 2%) 0.5 inch EXT Q6H [facility] Stop: 10/13/18 19:59 Last Admin: 09/14/18 08:19 Dose: 0.5 inch Ondansetron HCl (Zofran) 4 mg IV Q6H PRN PRN Reason: Nausea Stop: 10/13/18 11:55 Polyethylene Glycol (Miralax Powder Packet) 17 gm PO DAILY PRN PRN Reason: Constipation Stop: 10/13/18 11:55 _ (1) HTN (hypertension) Hypertension type: essential hypertension Qualified Code(s): I10 - Essential (primary) hypertension
[2018-09-14] MEDS ORDERED: CLOPIDOGREL BISULFATE 300 MG TAB ONE (12:27)
--- NOTE | 2018-09-14 12:39 | Post Anesthesia Assessment ---
Date of Service September 14, 2018 Post Sedation Assessment Vital Signs Temp Pulse Pulse Resp BP Pulse Ox 09/14/18 07:16 36.8 C 63 19 134/82 09/14/18 04:28 36.9 C 64 17 112/70 97 09/14/18 03:08 130/76 09/14/18 00:14 36.4 C L 62 18 118/73 96 09/13/18 23:09 84 09/13/18 21:25 79 134/83 09/13/18 20:14 36.8 C 74 17 125/79 95 09/13/18 15:16 36.8 C 71 18 126/79 96 Recovery Score Activity: Moves 4 extremities Respiration: Deep Breath/Cough Circulation: +/-20% PreAnes Value Consciousness: Fully Awake Oxygen Saturation: O2 needed for >90% Discharge Sedation Level of Care: Fast Track Phase II Post Sedation Plan On clinical assessment, the patient appears to have tolerated the sedation without complications. Patient is recovering as anticipated. Patient will continue to be monitored by nursing and may be discharged when sedation discharge criteria are met per below protocol. Upon Completions of procedure and additional 15 minutes continue every 5 minute vital signs and the P.A.R. score; then discharge to a Phase I or Fast Track to Phase II per the following guidelines: * Discharge Patient to appropriate Phase II area if PAR is 8 or greater or return to pre- procedure baseline. The post - procedure orders will be as directed. * If PAR score is less than 8 or not return to pre-procedure baseline then patient will follow Phase I monitoring till PAR is reached for Phase II. The Phase I may be done in procedure room or may call to secure a Phase I area. * If naloxone or flumazenil are used for reversal, hold in Phase I for continued monitoring from when last reversal dose was given for a minimum of 60 minutes or longer pending the nurse and/or physician discretion of patient condition before discharge to Phase II. Please call the Sedation Physician to re-evaluate and complete post-note for discharge to Phase II area. Do NOT discharge from procedure sedation or Phase 1 until post- sedation evaluation note is complete by procedure /sedation MD Sedation Discharge Instructions to be given to the patient at discharge to home.
--- NOTE | 2018-09-14 12:47 | Cardiac Catheterization ---
Cardiac Cath Procedure Full Procedure Date September 14, 2018 Pre-Procedure Diagnosis Pre-Procedure Diagnosis: Acute Coronary Syndrome AUC Score AUC Score: 7 Post-Procedure Diagnosis Post-Procedure Diagnosis: Severe CAD and Successful PCI Procedure(s) Performed Procedure(s) Performed: PTCA and Drug Eluting Stent Data Conversion Operator Shimon Frye MD Cotton Presser(s) Rosibel Hamm and Lilia Rubin Estimated Blood Loss Estimated Blood Loss: < 25 ml Medication(s) Medication(s): Clopidogrel, Fentanyl, Heparin, Lidocaine 1%, Nicardipine, Nitroglycerin and Versed Summary of Findings Indication: Unstable angina Access: 6 [place] right radial artery Catheters: EBU 3.75 guide Findings: For full details of patient's coronary angiography please cath report dictated by Dr. Padilla. Briefly, patient found to have severe single vessel disease including a 80-90 % stenosis involving the mid LAD, bifurcation with second diagonal. Decision to proceed with PCI. -- PCI -- Antithrombotic therapy: Heparin, clopidogrel Procedure: Left main cannulated with EBU 3.75 guide BMW wire passed across lesion into distal LAD Pro-water wire placed into second diagonal Mid LAD lesion predilated with 3.0 compliant balloon Dilated lesion stented with 4.0 x 22 mm Zak drug-eluting stent Second diagonal rewired with home care administrator 50 wire Ostium of diagonal dilated with 2.0 balloon stent post-dilated with 5.0 noncompliant balloon Ostium of second diagonal dilated again with 2.0 and 2.5 balloon IC vasodilators administered for spasm Post procedure JOSÉ MIGUEL 3 flow, stent well expanded with minimal residual stenosis. Moderate residual ostial second diagonal stenosis with JOSÉ MIGUEL-3 flow. Arterial Closure: TR band Summary: 1. Successful PCI of proximal to mid LAD with single drug-eluting stent (4.0 x 22 mm [place]; postdilated with 5.0 NC balloon). Recommendations: To PCU for continued monitoring Loaded with clopidogrel 600 mg in computer laboratory technician Continue dual-antiplatelet therapy for at least 6-month Continue statin, and ASCVD risk factor modification Consult cardiac Rehab Hemodynamics Rest Ao:: 119/75/95 Final Ao: 115/72/91 LV: -- Recommendations Recommendations: PCI without planned CABG Specimens Specimens: None Radiation Exposure (mGy) 8232 Contrast (mls) 260 opti Fluids (cc crystalloids) Fluids (cc crystalloids): 142 NSS Drains Drains: None Anesthesia Moderate Procedural Complication(s) None Disposition PCU (Remains in computer laboratory technician for PCI) ACC Data: Seed Collector Cardiac Status Clinical evaluation leading to the procedure CAD Presenation: Unstable angina Anginal Classification: CCS III Heart Failure: NYHA Class: CCS II Cardiogenic Shock within 24 Hours: No Cardiac Arrest within 24 Hours: No Imaging Studies Past 6 Months: Yes Stress Studies Past 6 Months: No Diagnostic Physicians Name: Shimon Frye MD Status: Elective Closure Device Percutaneous Entry Location: Radial Closure Device: Radial Band Recommendations: PCI without planned CABG Lesion Segment Name: Proximal to mid LAD Culprit Artery: Yes Stenosis Prior to Rx (%): 80-90 Chronic Total Occlusion: No FFR: No Pre-Procedure JOSÉ MIGUEL Flow: 3 Previously Treated Lesion: No Lesion Complexity: High/C Lesion Length (mm): 20 Thrombus Present: No Bifurcation Lesion: Yes Guidewire Across Lesion: Stenosis Post-Procedure (%): 0 Post-Procedure JOSÉ MIGUEL Flow : 3 Devices(s) Deployed: Yes Yes Intraprocedure Events Significant Disection: No Perforation: No
[2018-09-14] MEDS ORDERED: SODIUM CHLORIDE 0.9% 1000ML 1,000 ML IV SCH (13:00)
[2018-09-14] MEDS ORDERED: MoRPHine SULFATE 4 MG/ML 1 ML CARP\\VIAL IV STA (13:55)
--- NOTE | 2018-09-14 13:57 | Hospitalist Progress Note ---
Date of Service September 14, 2018 Assessment & Plan (1) Substernal chest pain: Chest pain seems atypical but does have a strong family history & uncontrolled hypertension as risk factors for heart disease. - Plan to proceed with [facility] with cardiology - Continue nitro patch - ASA 81mg (2) HTN (hypertension): Long-standing. -Continued home verapamil 180 mg once daily and losartan/HCT at home dosing. - Improved as of 09/14 (3) Obesity: Counseled on weight loss, and dietary changes (4) RBBB: New from previous in 2010. -Most likely a benign finding, but appreciate cardiology consultation (5) DVT prophylaxis: Tony Subjective 53yo M w/ hx of HTN who presents with chest pain, concerning for angina. This morning, he had no chest pain. Has mild headache from the nitro. Reports no fevers/chills, chest pain, shortness of breath, abdominal pain, nausea, or vomiting. Physical Exam 2 Vital Signs (Past 24 Hours): Last Vital Signs Temp 36.8 C 09/14/18 07:16 Pulse 63 09/14/18 07:16 Resp 19 09/14/18 07:16 BP 134/82 09/14/18 07:16 Pulse Ox 97 09/14/18 04:28 Constitutional: WD/WN, vitals as above Eyes: PERRL, conjunctivae normal, anicteric sclerae ENMT: external ear and nose normal, oropharynx normal Ears: no external ear abnormality, no EAC abnormality and no TM abnormality Neck: trachea midline, no thyromegaly Respiratory: normal respiratory effort, lungs clear to auscultation Cardiovascular: RRR, no murmur, no edema Vessels: dorsalis pedis pulses present; no JVD and no carotid bruit Extremities: no edema Gastrointestinal (Abdomen): normal bowel sounds, soft, nontender, no hepatosplenomegaly Musculoskeletal: Extremities: extremities normal to inspection; no cyanosis and no clubbing Skin: no rashes, warm and dry Neurologic: moves all extremities and awake; no focal motor deficits Psychiatric: A+Ox3, euthymic affect Lymphatic: no preauricular lymphadenopathy, no cervical lymphadenopathy and no subclavicular lymphadenopathy _ (1) HTN (hypertension) Hypertension type: essential hypertension Qualified Code(s): I10 - Essential (primary) hypertension (2) Obesity Obesity type: unspecified obesity type Obesity classification: adult class 1 (BMI 30 - 34.9) Serious obesity comorbidity presence: with serious comorbidity Body mass index: BMI 34.0-34.9 Qualified Code(s): E66.9 - Obesity, unspecified; Z68.34 - Body mass index (BMI) 34.0-34.9, adult
[2018-09-14] MEDS ORDERED: MoRPHine SULFATE 2 MG/ML CARP ONE (13:58)
[2018-09-14] MEDS: ENOXAPARIN INJ 40 MG/0.4 ML SYR SQ SCH (16:45)
[2018-09-14] MEDS ORDERED: ATORVASTATIN 40 MG TAB PO SCH (21:00)
[2018-09-15] MEDS: NITROGLYCERIN 2% OINTMENT 30GM TUBE EXT SCH ×2 (02:39→07:54)
[2018-09-15] MEDS: ACETAMINOPHEN 325 MG TAB PO PRN (02:44)
[2018-09-15] MEDS: METOPROLOL TARTRATE 25 MG TAB PO SCH (07:48)
[2018-09-15] MEDS: LOSARTAN POTASSIUM 50 MG TAB PO SCH (07:48)
[2018-09-15] MEDS: ASPIRIN 81 MG ECTAB PO SCH (07:48)
[2018-09-15] MEDS: hydroCHLOROthiazide 25 MG TAB PO SCH (07:49)
[2018-09-15] MEDS ORDERED: CLOPIDOGREL BISULFATE 75 MG TAB PO SCH (09:00)
--- NOTE | 2018-09-17 21:12 | Discharge Summary ---
Date of Service September 15, 2018 Admission HPI Per Admitting Provider This patient is a 53-year-old male with a history of hypertension and obesity, who presents to the ER with 3 days of intermittent chest discomfort that is substernal and radiates to the throat, jaw, and at times to the left shoulder. It feels like a burning in nature and is sometimes associated with belching. It is not associated with nausea or shortness of breath, however he does feel he gets to take one deep breath when it first starts to catch his breath. It usually lasts less than an hour but this morning it lasted a full hour prior to coming in here and was resolved on its own by the time he got here. At first it seemed to come on with walking, but then at other times it would come on at rest. In the ER, his blood pressure was quite elevated at 181/112 and he was given IV hydralazine and IV labetalol He denied headache or lightheadedness, recent illness, no visual changes, no fevers, no abdominal pains, no nausea/vomiting/diarrhea, no joint pains or rashes. He will be admitted for a rule out acute coronary syndrome and further cardiac risk stratification. Principal Diagnosis Coronary artery disease Discharge Exam Constitutional WD/WN, vitals as above Eyes PERRL, conjunctivae normal, anicteric sclerae ENMT external ear and nose normal, oropharynx normal Ears: no external ear abnormality, no EAC abnormality and no TM abnormality Neck trachea midline, no thyromegaly Respiratory normal respiratory effort, lungs clear to auscultation Cardiovascular RRR, no murmur, no edema Vessels: dorsalis pedis pulses present; no JVD and no carotid bruit Extremities: no edema Gastrointestinal (Abdomen) normal bowel sounds, soft, nontender, no hepatosplenomegaly Musculoskeletal Extremities: extremities normal to inspection; no cyanosis and no clubbing Skin no rashes, warm and dry Neurologic moves all extremities and awake; no focal motor deficits Psychiatric A+Ox3, euthymic affect Lymphatic no preauricular lymphadenopathy, no cervical lymphadenopathy and no subclavicular lymphadenopathy Discharge Data Allergies Allergy/AdvReac Type Severity Reaction Status Date / Time No Known Allergies Allergy NONE Verified 09/13/18 08:27 Consultations 09/13/18 09:42 ED Decision to Admit Stat 09/13/18 11:56 Consult Cardiology Routine 09/13/18 20:02 Consult Cardiac Catheterization Routine Procedures Performed Operation Date: 09/14/18 08:00 Actual Procedures p Cath, Left with Cors and Vent - Saul Padilla MD s Cineradiography w/Routine Exam(Not Applicable) - Stanford Frye MD p Drug Eluting Stent SGl Vessel(Not Applicable) - Stanford Frye MD s POBA SGL Vessel(Not Applicable) - Stanford Frye MD Ordered Studies 09/14/18 07:37 CL Cath Imgs for PACS use only Urgent 09/14/18 13:11 CL Cath Imgs for PACS use only Urgent Hospital Course (1) Substernal chest pain: Patient had PCI on 09/14 with 1 drug-eluting stent to the LAD. No chest pain afterward. - Continue ASA, Plavix for 6 months - Prescribed beta-james and statin on discharge - Follow up with Dr. Padilla outpatient (2) HTN (hypertension): Long-standing. -Held home verapamil [address] in place of: - Losartan/HCT at home dosing and beta-james (3) Obesity: Counseled on weight loss, and dietary changes (4) RBBB: New from previous in 2010. -Most likely a benign finding, but appreciate cardiology consultation (5) DVT prophylaxis: Lovenox Total Time Total Time Spent Total Time Spent (In Minutes): 35 Total Time Includes: Examination of the Patient, Discharge Planning and Medication Reconciliation Discharge Plan Discharge Items Patient Disposition: Home - Self-Care Reason For Visit: CHEST PAIN Discharge Diagnosis: Angina with coronary artery disease Discharge Goals: Decrease discomfort, Diagnostic testing and Improve function Activity: Resume your previous activity Lifting: No more than 10 pounds Lifting Comment: No more than 10 lbs in right hand until approved by cardiology. Non-emergency contact: Primary Care Provider and Fittings Tightener Call non-emergency contact if: your symptoms worsen, your pain is unusual for you and your temperature is above 100.5 Follow-up/Referrals: Saul Padilla MD [Fittings Tightener] - 04/10/19 11:15 am (Fittings Tightener Follow Up) Brinda De La Torre PA-C [Physician Operational Meteorologist] - 09/24/18 8:30 am (Cardiology Follow up) Diet: Heart Healthy Add Provider Instructions: Mr. Close, you were admitted to the hospital with chest pain. The heart doctors did a catheterization and found a blockage in your LAD artery in your heart. You got one stent there which opened up the area. Please follow up with the doctors as scheduled to be sure you are doing well. Please see them as scheduled. Please take both aspirin (81mg) and the clopidogrel (Plavix) as prescribed every day. These two medications help keep the stent open and working appropriately. Please also take the metoprolol which will help reduce the stress on your heart. Please stop your verapamil. Combining the verapamil plus the metoprolol can slow your heart rate. It is more important to take the metoprolol, so you should take it and not the verapamil. Please return to the hospital with any chest pain, pain that radiates up to the neck or jaw, lightheadedness, dizziness, palpitations, or other concerning symptoms. Prescriptions: New clopidogrel 75 mg Tablet 75 mg PO QAM Qty: 30 RF: 0 nitroglycerin [Nitrostat] 0.4 mg Tablet, Sublingual 0.4 mg Sublingual Q5M PRN (Reason: chest pain) Qty: 30 RF: 0 aspirin [Ecotrin Low Strength] 81 mg Tablet,Delayed Release (Dr/Ec) 81 mg PO QAM Qty: 30 RF: 0 metoprolol succinate [Toprol XL] 50 mg tablet extended release 24 hr 50 mg PO DAILY Qty: 30 RF: 0 atorvastatin 80 mg tablet 80 mg PO HS Qty: 30 RF: 0 Continue losartan-hydrochlorothiazide 50-12.5 mg tablet 1 tab PO QAM RF: 0 omega [id number] oil [Fish Oil] 1,000 mg (120 mg-180 mg) Capsule 1 cap PO QAM RF: 0 Discontinued verapamil 180 mg tablet extended release 180 mg PO QAM RF: 0 Stand-Alone Forms: [facility] Discharge Orders: Discharge Order (Routine); Ordered 09/15/18 Ordered By: Brennen Lara Admission Data Admit Date/Time: 09/13/18 10:48 Attending Provider: Brennen Lara Admit Provider: Phylicia Walter Primary Care Provider: Amrit Lara Other Providers: Saul Padilla ; Brennen Lara Service: Telemetry Other Interventions: Discharge Summary Assessment (RN) Last Done: 09/15/18 11:22 DC Date/Time DO NOT enter until pt leaves facility: 09/15/18 12:44
== END 2018-09-15 12:44 | disposition home or self-care (01) ==
LOC: 2S 08:10 → ED 08:10 → SUATTDRO 10:48 → 2S 11:36

== ENCOUNTER 2024-11-14 22:33 | Inpatient (IN) ==
[2024-11-14] MEDS: ONDANSETRON INJ 2 MG/ML 2 ML VIAL IV STA (23:06)
--- NOTE | 2024-11-14 23:06 | Emergency Department Note ---
History of Present Illness General Chief complaint: Abdominal Pain Stated complaint: ABD PAIN Time Seen by Provider: 11/14/24 22:40 History of Present Illness Maximum Pain Intensity: 4 This 59-year-old male presents ER complaining of lower abdominal pain since around 12 PM today. Patient denies chest pain, dyspnea, fevers, vomiting, diarrhea, flank pain, urinary symptoms, penile pain or testicular pain. No prior abdominal surgeries. No history of diverticulitis. Colonoscopy last year was normal. Home Medications Medication Instructions Recorded Confirmed Type aspirin 81 mg tablet,delayed 81 mg PO QAM #30 tabs 09/15/18 11/15/24 Rx release (Ecotrin Low Strength) nitroglycerin 0.4 mg sublingual 0.4 mg sublingual Q5M PRN chest 02/03/20 11/15/24 Rx tablet (Nitrostat) pain #25 tabs icosapent ethyl 1 gram capsule 2 g (2 x 1 gram) PO BID #360 caps 09/02/24 11/15/24 Rx (Vascepa) BiPap Machine See Rx Instructions .Route 10/16/24 11/15/24 Rx .COMPLEX #1 ea atorvastatin 80 mg tablet (Lipitor) 80 mg PO HS 10/31/24 11/15/24 History clopidogrel 75 mg tablet (Plavix) 75 mg PO QAM 10/31/24 11/15/24 History metoprolol succinate 100 mg 150 mg PO QAM 10/31/24 11/15/24 History tablet,extended release 24 hr valsartan 320 1 tab PO QAM 10/31/24 11/15/24 History mg-hydrochlorothiazide 25 mg tablet ondansetron 4 mg disintegrating 4 mg PO Q6H PRN nausea and 11/12/24 11/15/24 Rx tablet vomiting #10 tabs tramadol 50 mg tablet 50 mg PO Q6H PRN pain #18 tabs 11/12/24 11/15/24 Rx Allergies Allergy/AdvReac Type Severity Reaction Status Date / Time No Known Allergies Allergy NONE Verified 11/12/24 06:31 Past Med/Surg History Problem List (Updated 11/15/24 @ 02:47 by Tena Osorio PA-C) Renal cyst Fever (Acute) Sigmoid diverticulosis (Acute) Bilateral carpal tunnel syndrome Numbness and tingling in both hands Degenerative arthritis of knee, bilateral History of colon polyps Palpitations occasional Diaphoresis Presence of drug-eluting stent in anterior descending branch of left coronary artery Sleep apnea suspected; going for sleep study 11/29/22 S/P coronary artery stent placement Dyslipidemia CAD (coronary artery disease), jena coronary artery RBBB Obesity HTN (hypertension) Medical History Sleep apnea BiP[place]BB[place] [facility] [place] [facility] [place] Palpitations Occasionally [place] [facility] [facility] [place] Pad[place] Hypertension Dyslipidemia Numbness and tingling in both hands Bilateral carpal tunnel syndrome CAD (coronary artery disease) x1 stent [place] [facility] [place] Pad[place] Surgical History History of wisdom tooth extraction S/P coronary artery stent placement x1 stent - 2019 [place] [facility] [place] [facility] [place] Padilla Hx of colonoscopy (2022) History of cataract surgery Bilateral History of cardiac cath (2018) x1 stent [place] [facility] [place] [facility] [place] Padilla History of excision of pilonidal cyst History of repair of rotator cuff Right Family History Father Myocardial infarction, Onset Age: 55 Uncle Myocardial infarction, Onset Age: 68 Mother Afib HTN (hypertension), benign Grandfather (Maternal) HTN (hypertension), benign Sister No problems noted. Brother Aortic aneurysm Brother No problems noted. Son No problems noted. Son No problems noted. Daughter No problems noted. Daughter No problems noted. 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 [employer] How many Children do You have: 4 Feels Safe at Home: Yes Childhood Exposure to Second-Hand Smoke: Yes Diet: regular Dental Care, Regularly: Yes Physical Activity Frequency: Does not Exercise Seatbelt Use: always Sunscreen Use: Yes Assistive Devices: BiPap Review of Systems A total of 10 systems reviewed and were otherwise negative Physical Exam Vital Signs Vital Signs - 24 hr 11/14/24 22:36 11/14/24 22:59 11/15/24 00:25 Temperature 36.7 C Temperature Source Oral Pulse Rate 69 68 83 Respiratory Rate 18 18 Respiratory Effort / Characteristics Non-Labored Respiratory Depth Normal Blood Pressure 190/91 H 164/85 H Blood Pressure Mean 124 111 Pulse Oximetry 96 94 Oxygen Delivery Method Room Air Sepsis Recent Fever Within 48 Hours No Sepsis New/Unexplained Change in Mental Status No Sepsis Action Taken by Nursing No Action Required 11/15/24 01:20 11/15/24 01:47 11/15/24 02:22 Temperature 37.6 C H 38.9 C H Temperature Source Oral Oral Pulse Rate 84 Respiratory Rate 20 Respiratory Effort / Characteristics Respiratory Depth Blood Pressure 170/92 H Blood Pressure Mean 118 Pulse Oximetry 96 Oxygen Delivery Method Sepsis Recent Fever Within 48 Hours Sepsis New/Unexplained Change in Mental Status Sepsis Action Taken by Nursing 11/15/24 03:02 Temperature 38.5 C H Temperature Source Oral Pulse Rate Respiratory Rate Respiratory Effort / Characteristics Respiratory Depth Blood Pressure Blood Pressure Mean Pulse Oximetry Oxygen Delivery Method Sepsis Recent Fever Within 48 Hours Sepsis New/Unexplained Change in Mental Status Sepsis Action Taken by Nursing VITALS: Vitals are noted on the nurse's note and reviewed by myself. Vital signs stable. GENERAL: Pleasant gentleman, in no acute distress, nondiaphoretic, well- developed well-nourished. SKIN: Capillary reflex less than 2 seconds. HEENT: Normocephalic. PERRLA. EOMI. Nares patent. Mucous membranes moist. Neck is supple without nuchal rigidity. HEART: Regular rate and rhythm LUNGS: Clear to auscultation bilaterally without wheezes, rales or rhonchi. No retractions or accessory muscle use. ABDOMEN: Positive bowel sounds x 4. Normal tympanic percussion. Soft, tender to palpation lower abdomen, without masses or organomegaly. Carlos sign negative. No guarding or rebound tenderness. no CVA tenderness MUSCULOSKELETAL: No gross musculoskeletal defects. NEURO: Patient was alert and oriented to person place and time. No focal neurological deficits. Course Administered Medications Lactated Ringer's (Lr) 1,000 mls @ 80 mls/hr IV .[id number] PITA Stop: 11/15/24 15:14 Last Admin: 11/15/24 02:55 Dose: 80 mls/hr Documented By: LEONCIO Discontinued Medications Acetaminophen (Acetaminophen 500 Mg Tab) 1,000 mg PO NOW STA Stop: 11/15/24 01:53 Last Admin: 11/15/24 01:56 Dose: 1,000 mg Documented By: LEONCIO Acetaminophen (Acetaminophen 500 Mg Tab) 1,000 mg PO NOW STA Stop: 11/15/24 01:54 Last Admin: 11/15/24 01:56 Dose: Not Given Documented By: LEONCIO Dicyclomine HCl (Dicyclomine Hcl 10 Mg/Ml 2 Ml Amp/Vial) 20 mg IM NOW ONE Stop: 11/14/24 22:51 Last Admin: 11/14/24 23:07 Dose: 20 mg Documented By: ELIZABETH Sodium Chloride (Nss) 1,000 mls @ 999 mls/hr IV .Q1H1M ONE Stop: 11/14/24 23:50 Last Infusion: 11/15/24 00:37 Dose: Infused Documented By: Admin: 11/14/24 23:10 Dose: 999 mls/hr Documented By: ELIZABETH Piperacillin Sod/Tazobactam Sod (Zosyn) 4.5 gm in 100 mls @ 200 mls/hr IV NOW ONE; Protocol Stop: 11/15/24 02:07 Last Infusion: 11/15/24 03:08 Dose: Infused Documented By: Admin: 11/15/24 01:56 Dose: 200 mls/hr Documented By: LEONCIO Ioversol (Optiray 320 100ml) 100 ml IV ONCE ONE Stop: 11/14/24 23:58 Last Admin: 11/14/24 23:57 Dose: 93 ml Documented By: WILLIAN Ondansetron HCl (Ondansetron Inj 2 Mg/Ml 2 Ml Vial) 4 mg IV NOW STA Stop: 11/14/24 22:51 Last Admin: 11/14/24 23:06 Dose: 4 mg Documented By: ELIZABETH Medical Decision Making Medical Records Attestation: I reviewed the patient's medical records. Home Medications Current Medication List: was personally reviewed by me Laboratory Data Attestation: I reviewed the patient's lab results. 11/14/24 22:57 11/14/24 22:57 Lab Results 11/14/24 11/14/24 11/15/24 Range/Units 22:57 23:13 00:12 WBC 10.68 (4.8-10.8) K/ul RBC 4.58 L (4.70-6.10) M/uL Hgb 13.4 L (14.0-18.0) g/dl POC Hgb 13.6 L (14.0-18.0) g/dl Hct 40.1 L (42.0-52.0) % POC Hct 40 L (42-52) % MCV 87.6 (80.0-100.0) fL MCH 29.3 (25.0-34.0) pg MCHC 33.4 (32.0-36.0) g/dL RDW Std Deviation 44.7 (36.4-46.3) fL RDW Coeff of Ashlee 14.0 (11.5-14.5) % Plt Count 179 (130-400) K/uL MPV 11.2 (9.4-12.4) fL Immature Gran % (Auto) 0.5 % Neut % (Auto) 87.9 % Lymph % (Auto) 6.8 % Branch % (Auto) 4.2 % Eos % (Auto) 0.3 % Baso % (Auto) 0.3 % Neut # (Auto) 9.39 H (1.40-6.50) K/uL Lymph # (Auto) 0.73 L (1.20-3.40) K/uL Branch # (Auto) 0.45 (0.11-0.59) K/uL Eos # (Auto) 0.03 (0.00-0.50) K/uL Baso # (Auto) 0.03 (0.00-0.20) K/uL Immature Gran # (Auto) 0.05 (0.01-0.20) K/uL POC Sodium 139 (135-144) mmol/L Sodium 138 (136-145) mmol/L POC Potassium 3.7 (3.3-5.0) mmol/L Potassium 3.7 (3.5-5.1) mmol/L POC Chloride 100 L (101-112) mmol/L Chloride 102 (98-107) mmol/L Carbon Dioxide 31 (21-32) mmol/L POC Total CO2 29 (24-31) mmol/L Anion Gap 5 (3-11) POC Anion Gap 14.0 L (16-25) mmol/L POC BUN 17 (7-18) mg/dl BUN 17 (6-23) mg/dl Creatinine 1.31 (0.6-1.4) mg/dl POC Creatinine 1.4 H (0.6-1.3) mg/dl Est Cr Clr Drug Dosing 76.2 ml/min eGFR 62.70 BUN/Creatinine Ratio 13.0 (10-20) Glucose 128 H (70-99(Fasting)) mg/dl POC Glucose (other) 129 H (70-99) mg/dl Lactate (0.4-2.0) mmol/L Calcium 9.6 (8.6-10.3) mg/dl POC Ioniz Calcium Tyrell 1.19 (1.12-1.32) mmol/l Total Bilirubin 0.8 (0.2-1.0) mg/dl AST 18 (13-39) U/L ALT 25 (7-52) U/L Alkaline Phosphatase 66 (34-104) U/L Troponin I High Sens < 2.3 (0-20) pg/ml Total Protein 7.7 (6.0-8.3) gm/dl Albumin 4.4 (3.4-5.0) gm/dl Globulin 3.3 (2.5-4.0) gm/dl Albumin/Globulin Ratio 1.3 (0.9-2) Lipase 33 (11-82) U/L Urine Color Yellow Urine Appearance Clear (Clear) Urine pH 5.0 (4.5-7.5) Ur Specific Dane 1.024 (1.000-1.030) Urine Protein Negative (Negative) Urine Glucose (UA) Negative (Negative) Urine Ketones Negative (Negative) Urine Blood Negative (Negative) Urine Nitrite Negative (Negative) Urine Bilirubin Negative (Negative) Urine Urobilinogen Negative (Negative) Ur Leukocyte Esterase Negative (Negative) Adenovirus (PCR) (NotDetected) B. pertussis DNA (PCR) (NotDetected) B.parapertussis DNA PCR (NotDetected) C. pneumoniae DNA (PCR) (NotDetected) Coronavirus OC43 (PCR) (NotDetected) Coronavirus HKU1 (PCR) (NotDetected) Coronavirus 229E (PCR) (NotDetected) SARS-CoV-2 (PCR) (NotDetected) Coronavirus NL63 (PCR) (NotDetected) Human Metapneumovir PCR (NotDetected) Influenza Type A (PCR) (NotDetected) Influenza Type B (PCR) (NotDetected) M. pneumoniae (PCR) (NotDetected) Parainfluenza 1 (PCR) (NotDetected) Parainfluenza 2 (PCR) (NotDetected) Parainfluenza 3 (PCR) (NotDetected) Parainfluenza 4 (PCR) (NotDetected) RSV (PCR) (NotDetected) Entero/Rhino (PCR) (NotDetected) 11/15/24 11/15/24 Range/Units 01:23 01:54 WBC (4.8-10.8) K/ul RBC (4.70-6.10) M/uL Hgb (14.0-18.0) g/dl POC Hgb (14.0-18.0) g/dl Hct (42.0-52.0) % POC Hct (42-52) % MCV (80.0-100.0) fL MCH (25.0-34.0) pg MCHC (32.0-36.0) g/dL RDW Std Deviation (36.4-46.3) fL RDW Coeff of Ashlee (11.5-14.5) % Plt Count (130-400) K/uL MPV (9.4-12.4) fL Immature Gran % (Auto) % Neut % (Auto) % Lymph % (Auto) % Branch % (Auto) % Eos % (Auto) % Baso % (Auto) % Neut # (Auto) (1.40-6.50) K/uL Lymph # (Auto) (1.20-3.40) K/uL Branch # (Auto) (0.11-0.59) K/uL Eos # (Auto) (0.00-0.50) K/uL Baso # (Auto) (0.00-0.20) K/uL Immature Gran # (Auto) (0.01-0.20) K/uL POC Sodium (135-144) mmol/L Sodium (136-145) mmol/L POC Potassium (3.3-5.0) mmol/L Potassium (3.5-5.1) mmol/L POC Chloride (101-112) mmol/L Chloride (98-107) mmol/L Carbon Dioxide (21-32) mmol/L POC Total CO2 (24-31) mmol/L Anion Gap (3-11) POC Anion Gap (16-25) mmol/L POC BUN (7-18) mg/dl BUN (6-23) mg/dl Creatinine (0.6-1.4) mg/dl POC Creatinine (0.6-1.3) mg/dl Est Cr Clr Drug Dosing ml/min eGFR BUN/Creatinine Ratio (10-20) Glucose (70-99(Fasting)) mg/dl POC Glucose (other) (70-99) mg/dl Lactate 1.7 (0.4-2.0) mmol/L Calcium (8.6-10.3) mg/dl POC Ioniz Calcium Tyrell (1.12-1.32) mmol/l Total Bilirubin (0.2-1.0) mg/dl AST (13-39) U/L ALT (7-52) U/L Alkaline Phosphatase (34-104) U/L Troponin I High Sens (0-20) pg/ml Total Protein (6.0-8.3) gm/dl Albumin (3.4-5.0) gm/dl Globulin (2.5-4.0) gm/dl Albumin/Globulin Ratio (0.9-2) Lipase (11-82) U/L Urine Color Urine Appearance (Clear) Urine pH (4.5-7.5) Ur Specific Dane (1.000-1.030) Urine Protein (Negative) Urine Glucose (UA) (Negative) Urine Ketones (Negative) Urine Blood (Negative) Urine Nitrite (Negative) Urine Bilirubin (Negative) Urine Urobilinogen (Negative) Ur Leukocyte Esterase (Negative) Adenovirus (PCR) Not Detected (NotDetected) B. pertussis DNA (PCR) Not Detected (NotDetected) B.parapertussis DNA PCR Not Detected (NotDetected) C. pneumoniae DNA (PCR) Not Detected (NotDetected) Coronavirus OC43 (PCR) Not Detected (NotDetected) Coronavirus HKU1 (PCR) Not Detected (NotDetected) Coronavirus 229E (PCR) Not Detected (NotDetected) SARS-CoV-2 (PCR) Not Detected (NotDetected) Coronavirus NL63 (PCR) Not Detected (NotDetected) Human Metapneumovir PCR Not Detected (NotDetected) Influenza Type A (PCR) Not Detected (NotDetected) Influenza Type B (PCR) Not Detected (NotDetected) M. pneumoniae (PCR) Not Detected (NotDetected) Parainfluenza 1 (PCR) Not Detected (NotDetected) Parainfluenza 2 (PCR) Not Detected (NotDetected) Parainfluenza 3 (PCR) Not Detected (NotDetected) Parainfluenza 4 (PCR) Not Detected (NotDetected) RSV (PCR) Not Detected (NotDetected) Entero/Rhino (PCR) Not Detected (NotDetected) Imaging Data Attestation: I personally reviewed and interpreted this imaging study as follows: Radiologist's Impression: Abdomen/Pelvis CT 11/14/24 22:50 Exam(s): CT ABDOMEN + PELVIS With Contrast IV Amt: 93 ml optiray 320 EXAM: CT Abdomen and Pelvis With Intravenous Contrast CLINICAL HISTORY: Reason for exam: lower abd pain. TECHNIQUE: Axial computed tomography images of the abdomen and pelvis with intravenous contrast. CTDI is 28.14 mGy and DLP is 1437.03 mGy-cm. Automated exposure control was utilized for the study. A dose lowering technique was utilized adhering to the principles of ALARA. CONTRAST: Patient received 93 ml optiray 320 of IV contrast COMPARISON: No relevant prior studies available. FINDINGS: Lung bases: Unremarkable. No mass. No consolidation. ABDOMEN: Liver: Unremarkable. No mass. Gallbladder and bile ducts: The gallbladder is contracted. No pericholecystic inflammatory changes are noted. No ductal dilation. Pancreas: Unremarkable. No mass. No ductal dilation. Spleen: Unremarkable. No splenomegaly. Adrenals: Unremarkable. No mass. Kidneys and ureters: There is a simple 8.1 x 5.7 cm left renal cyst. No hydronephrosis. Stomach and bowel: There are several sigmoid colon diverticula. There is segmental sigmoid colon wall thickening and moderate peridiverticular inflammatory changes consistent with diverticulitis. There is no evidence for perforation or abscess. No obstruction. PELVIS: Appendix: No findings to suggest acute appendicitis. Bladder: Unremarkable. No mass. Reproductive: Unremarkable as visualized. ABDOMEN and PELVIS: Intraperitoneal space: Unremarkable. No free air. No significant fluid collection. Bones/joints: There is multilevel thoracolumbar degenerative disc disease. There is retrolisthesis at L2-3 and L3-4. There are posterior disc osteophyte complexes at L2-3 through L5-S1. No acute fracture. No dislocation. Soft tissues: Unremarkable. Vasculature: Unremarkable. No abdominal aortic aneurysm. Lymph nodes: Unremarkable. No enlarged lymph nodes. IMPRESSION: 1. Findings consistent with acute sigmoid colon diverticulitis. No evidence for perforation or abscess. 2. 8.1 cm simple left renal cyst. 3. Advanced multilevel thoracal lumbar spondylosis as noted above.. Electronically signed by: Carrington Fields MD 11/15/24 01:32 AM MDM Narrative Prior records/ancillary studies reviewed. Triage Nursing notes reviewed. Additional history obtained from family. The patient's history was concerning for abdominal pain. Differential diagnosis: Etiologies such as appendicitis, diverticulitis, PUD, biliary pathology, UTI, pancreatitis, obstruction, mesenteric ischemia, aortic pathology, infections, inflammatory bowel disease, renal colic, as well as others were entertained. Physical examination findings: As above. ER treatment provided: An order was placed for continuous cardiac monitoring. The monitor shows a rate of 60-100 with a sinus rhythm per my Independent interpretation. Zofran, Bentyl and IV fluids were ordered On reassessment the patient felt better. Diagnostics interpreted by me: ECG: Ordered for abdominal pain EKG: Normal sinus, left axis, right bundle branch block, rate of 66. Impression normal sinus rhythm with a left axis deviation right bundle branch block independently interpreted by myself and unchanged from prior EKG per review of the MUSE system. The labs Independently Interpreted by myself revealed blood cultures pending. No worrisome leukocytosis Imaging studies: Imaging was reviewed and read by radiology Consultation: A consultation was placed with the hospitalist. The case was discussed and diagnostics were reviewed. The patient was evaluated in the ER for further treatment. Exam and history seem consistent with diverticulitis. Patient developed a fever while in the ER. Blood cultures were ordered along with a lactic. He was started on Zosyn for the diverticulitis. Medicine was consulted and the case was discussed. He will be evaluated for admission. Patient is agreeable. By the evaluation outlined above emergent etiologies such as appendicitis, PUD, biliary pathology, UTI, pancreatitis, obstruction, mesenteric ischemia, aortic pathology, inflammatory bowel disease, renal colic, as well as others were deemed relatively unlikely. The pt informed about the findings as listed above. All questions were answered and pleased with the treatment. The chart was completed utilizing [employer] Speech voice recognition software. Grammatical errors, random word insertions, pronoun errors, and incomplete sentences are an occassional consequence of this system due to software limitations, ambient noise, and hardware issues. Any formal questions or concerns about the content, text, or information contained within the body of this dictation should be directly addressed to the physician assistant manager airside operations for clarification. Impression & Plan Sigmoid diverticulosis, Fever Discharge Plan Visit Data Chief Complaint: Abdominal Pain Stated Complaint: ABD PAIN ED Provider: Shavon Tovar ED Midlevel Provider: Demetria Koch Discharge Problem: Sigmoid diverticulosis, Fever Forms Stand Alone Forms: [facility] [employer] Prescriptions Prescriptions: No Action nitroglycerin [Nitrostat] 0.4 mg tablet, sublingual 0.4 mg Sublingual Q5M PRN (Reason: chest pain) Qty: 25 5RF icosapent ethyl [Vascepa] 1 gram capsule 2 g PO BID Qty: 360 3RF BiPap Machine Misc See Rx Instructions .ROUTE .COMPLEX Qty: 1 0RF Rx Instructions: Transition to [facility] with a backup rate of 14: [facility]; aspirin [Ecotrin Low Strength] 81 mg Tablet,Delayed Release (Dr/Ec) 81 mg PO QAM Qty: 30 0RF atorvastatin [Lipitor] 80 mg tablet 80 mg PO HS metoprolol succinate 100 mg tablet extended release 24 hr 150 mg PO QAM clopidogrel [Plavix] 75 mg tablet 75 mg PO QAM valsartan-hydrochlorothiazide 320-25 mg tablet 1 tab PO QAM tramadol 50 mg tablet 50 mg PO Q6H PRN (Reason: pain) Qty: 18 0RF Rx Instructions: initial therapy ondansetron 4 mg tablet,disintegrating 4 mg PO Q6H PRN (Reason: nausea and vomiting) Qty: 10 0RF Referrals Referrals: Amrit Lara, [Primary Care Provider] -
[2024-11-14] MEDS: DICYCLOMINE HCL 10 MG/ML 2 ML AMP/VIAL IM ONE (23:07)
[2024-11-14] MEDS: SODIUM CHLORIDE 0.9% 1,000 ML IV ONE (23:10)
[2024-11-14 23:24] LABS: iSTAT Creatinine 1.4 mg/dl (0.6-1.3); iSTAT Hemoglobin 13.6 g/dl (14.0-18.0); iSTAT Ionized Calcium 1.19 mmol/l (1.12-1.32); iSTAT Potassium 3.7 mmol/L (3.3-5.0)
[2024-11-14 23:36] LABS: Basophils # (auto) 0.03 K/uL (0.00-0.20); Basophils % (auto) 0.3 %; Eosinophils # (auto) 0.03 K/uL (0.00-0.50); Eosinophils % (auto) 0.3 %; Hematocrit (blood only) 40.1 % (42.0-52.0); Hemoglobin 13.4 g/dl (14.0-18.0); Immature Granulocytes # (auto) 0.05 K/uL (0.01-0.20); Immature Granulocytes % (auto) 0.5 %; Lymphocytes # (auto) 0.73 K/uL (1.20-3.40); Lymphocytes % (auto) 6.8 %; Mean Corpuscular Hemoglobin 29.3 pg (25.0-34.0); Mean Corpuscular Hgb Conc 33.4 g/dL (32.0-36.0); Mean Corpuscular Volume 87.6 fL (80.0-100.0); Mean Platelet Volume 11.2 fL (9.4-12.4); Monocytes # (auto) 0.45 K/uL (0.11-0.59); Monocytes % (auto) 4.2 %; Neutrophils # (auto) 9.39 K/uL (1.40-6.50); Neutrophils % (auto) 87.9 %; Platelet Count 179 K/uL (130-400); RDW Standard Deviation 44.7 fL (36.4-46.3); Red Blood Count 4.58 M/uL (4.70-6.10); White Blood Count 10.68 K/ul (4.8-10.8)
[2024-11-14 23:41] LABS: Alanine Aminotransferase 25 U/L (7-52); Albumin Globulin Ratio 1.3 (0.9-2); Albumin Level 4.4 gm/dl (3.4-5.0); Alkaline Phosphatase 66 U/L (34-104); Anion Gap 5 (3-11); Aspartate Aminotransferase 18 U/L (13-39); Bilirubin,Total 0.8 mg/dl (0.2-1.0); Blood Urea Nitrogen 17 mg/dl (6-23); Calcium 9.6 mg/dl (8.6-10.3); Carbon Dioxide 31 mmol/L (21-32); Chloride 102 mmol/L (98-107); Creatinine Clr Calc Pharmacy 76.2 ml/min; Globulin 3.3 gm/dl (2.5-4.0); Glucose 128 mg/dl (70-99(Fasting)); Lipase 33 U/L (11-82); Potassium 3.7 mmol/L (3.5-5.1); Sodium 138 mmol/L (136-145); Total Protein 7.7 gm/dl (6.0-8.3)
[2024-11-14 23:47] LABS: Troponin I High Sensitivity < 2.3 pg/ml (0-20)
[2024-11-14] MEDS: OPTIRAY 320 100ml IV ONE (23:57)
[2024-11-15 01:00] LABS: Appearance Urine Clear (Clear); Bilirubin Urine Negative (Negative); Blood Urine Negative (Negative); Color Urine Yellow; Glucose Urine UA Negative (Negative); Ketones Urine Negative (Negative); Leukocyte Esterase Urine Negative (Negative); Nitrite Urine Negative (Negative); Protein Urine Negative (Negative); Specific Gravity Urine 1.024 (1.000-1.030); Urobilinogen Urine Negative (Negative)
--- NOTE | 2024-11-15 01:33 | CT Scan Report ---
Exam(s): CT ABDOMEN + PELVIS With Contrast IV Amt: 93 ml optiray 320 EXAM: CT Abdomen and Pelvis With Intravenous Contrast CLINICAL HISTORY: Reason for exam: lower abd pain. TECHNIQUE: Axial computed tomography images of the abdomen and pelvis with intravenous contrast. CTDI is 28.14 mGy and DLP is 1437.03 mGy-cm. Automated exposure control was utilized for the study. A dose lowering technique was utilized adhering to the principles of ALARA. CONTRAST: Patient received 93 ml optiray 320 of IV contrast COMPARISON: No relevant prior studies available. FINDINGS: Lung bases: Unremarkable. No mass. No consolidation. ABDOMEN: Liver: Unremarkable. No mass. Gallbladder and bile ducts: The gallbladder is contracted. No pericholecystic inflammatory changes are noted. No ductal dilation. Pancreas: Unremarkable. No mass. No ductal dilation. Spleen: Unremarkable. No splenomegaly. Adrenals: Unremarkable. No mass. Kidneys and ureters: There is a simple 8.1 x 5.7 cm left renal cyst. No hydronephrosis. Stomach and bowel: There are several sigmoid colon diverticula. There is segmental sigmoid colon wall thickening and moderate peridiverticular inflammatory changes consistent with diverticulitis. There is no evidence for perforation or abscess. No obstruction. PELVIS: Appendix: No findings to suggest acute appendicitis. Bladder: Unremarkable. No mass. Reproductive: Unremarkable as visualized. ABDOMEN and PELVIS: Intraperitoneal space: Unremarkable. No free air. No significant fluid collection. Bones/joints: There is multilevel thoracolumbar degenerative disc disease. There is retrolisthesis at L2-3 and L3-4. There are posterior disc osteophyte complexes at L2-3 through L5-S1. No acute fracture. No dislocation. Soft tissues: Unremarkable. Vasculature: Unremarkable. No abdominal aortic aneurysm. Lymph nodes: Unremarkable. No enlarged lymph nodes. IMPRESSION: 1. Findings consistent with acute sigmoid colon diverticulitis. No evidence for perforation or abscess. 2. 8.1 cm simple left renal cyst. 3. Advanced multilevel thoracal lumbar spondylosis as noted above.. Electronically signed by: Carrington Fields MD 11/15/24 01:32 AM
[2024-11-15] MEDS: PIPERACILLIN/TAZOBACTAM 4.5 GM/100 ML BAG IV ONE (01:56)
[2024-11-15] MEDS: ACETAMINOPHEN 500 MG TAB PO STA ×2 (01:56)
--- NOTE | 2024-11-15 01:57 | History & Physical Report ---
Date of Service November 15, 2024 Assessment & Plan (1) Sigmoid diverticulosis: (2) Fever: (3) Sleep apnea: (4) Renal cyst: Plan Patient is a 59-year-old male with past medical history of severe GABE, CAD s/p stent to L CEA 2018 on aspirin and Plavix, HLD, hypertension. He presented to the ED due to bilateral lower abdominal pain that began at noon today. Typically when he has stomach pain similar to this he has a set several episodes of diarrhea and it resolves. Today he had soft stools and the abdominal pain persisted. AP CT showed acute sigmoid colon diverticulitis and patient was found to have a temperature of 38.9 C. He is being admitted for IV antibiotics. #diverticulitis Temp 38.9C at time of admission other VSS, no leukocytosis, lactate 1.7 colonoscopy 10/11/22 revealed several polyps and multiple small mouthed diverticula in sigmoid colon AP CT showed acute sigmoid colon diverticulitis clears, advance as tolerated 1L NSS in ED, continue fluid resuscitation with LR at 80 mL/hour x 1 L continue Zosyn 4.5mg IV Zofran and Tylenol IV prn follow blood cultures trend CBC #severe GABE follows with Dr. Israel Bipap HS - bilevel ST at pressure setting 22/14 with backup rate 14 #renal cyst AP CT showed 8.1cm simple left renal cyst (no previous imaging/new finding) renal function stable follow with PCP of note patient is s/p carpal tunnel release of left wrist 11/11 Chronic stable diagnoses: anemia - Hgb 13.4, baseline, follow with PCP CADs/p stent to RCA 2018, continue aspirin and Plavix HLDhold atorvastatin as nonessential HTNContinue metoprolol with holding precautions, hold valsartan HCTZ VTE ppx: SCDs, defer chemical ppx as low risk Diet: Clears, advance as tolerated Dispo: med surg Admission and Anticipated Discharge Date Admission Date: 11/15/24 History of Present Illness Chief Complaint: abd pain Primary Care Provider: Amrit Lara DO Patient is a 59-year-old male with past medical history of severe GABE, CAD s/p stent to L CEA 2018 on aspirin and Plavix, HLD, hypertension. He presented to the ED due to bilateral lower abdominal pain that began at noon today. Typically when he has stomach pain similar to this he has a set several episodes of diarrhea and it resolves. Today he had soft stools and the abdominal pain persisted. AP CT showed acute sigmoid colon diverticulitis and patient was found to have a temperature of 38.9 C. He is being admitted for IV antibiotics. Patient seen at bedside with his present and daughter who is a nurse via telephone at bedside. He confirmed the story above. He denies any blood or dark stools. He denies any nausea or vomiting. He does feel feverish. His appetite has been stable today and he has been able to eat. He had a few sips of water without difficulty in the ED. He had a carpal tunnel procedure on Monday which is doing well. does not use nicotine products or drink alcohol. He denies any dizziness, lightheadedness, chest pain, shortness of breath. He believes he uses a BiPAP, he just received a new machine Monday because his old one was giving too much pressure so he believes. Recent sleep study records reviewed appears patient uses BiPAP currently. He did take his home medications yesterday. Allergies Allergy/AdvReac Type Severity Reaction Status Date / Time No Known Allergies Allergy NONE Verified 11/12/24 06:31 Home Medications Medication Instructions Recorded Confirmed Type aspirin 81 mg tablet,delayed 81 mg PO QAM #30 tabs 09/15/18 11/15/24 Rx release (Ecotrin Low Strength) nitroglycerin 0.4 mg sublingual 0.4 mg sublingual Q5M PRN chest 02/03/20 11/15/24 Rx tablet (Nitrostat) pain #25 tabs icosapent ethyl 1 gram capsule 2 g (2 x 1 gram) PO BID #360 caps 09/02/24 11/15/24 Rx (Vascepa) BiPap Machine See Rx Instructions .Route 10/16/24 11/15/24 Rx .COMPLEX #1 ea atorvastatin 80 mg tablet (Lipitor) 80 mg PO HS 10/31/24 11/15/24 History clopidogrel 75 mg tablet (Plavix) 75 mg PO QAM 10/31/24 11/15/24 History metoprolol succinate 100 mg 150 mg PO QAM 10/31/24 11/15/24 History tablet,extended release 24 hr valsartan 320 1 tab PO QAM 10/31/24 11/15/24 History mg-hydrochlorothiazide 25 mg tablet ondansetron 4 mg disintegrating 4 mg PO Q6H PRN nausea and 11/12/24 11/15/24 Rx tablet vomiting #10 tabs tramadol 50 mg tablet 50 mg PO Q6H PRN pain #18 tabs 11/12/24 11/15/24 Rx Past Med/Surg History Problem List (Updated 11/15/24 @ 02:47 by Tena Osorio PA-C) Renal cyst Fever (Acute) Sigmoid diverticulosis (Acute) Bilateral carpal tunnel syndrome Numbness and tingling in both hands Degenerative arthritis of knee, bilateral History of colon polyps Palpitations occasional Diaphoresis Presence of drug-eluting stent in anterior descending branch of left coronary artery Sleep apnea suspected; going for sleep study 11/29/22 S/P coronary artery stent placement Dyslipidemia CAD (coronary artery disease), [place] coronary artery RBBB Obesity HTN (hypertension) Medical History Sleep apnea BiPap RBBB pt denies - [facility] [place] [facility] - Dr Padilla Palpitations Occasionally - [facility] [place] [facility] - Dr Padilla Hypertension Dyslipidemia Numbness and tingling in both hands Bilateral carpal tunnel syndrome CAD (coronary artery disease) x1 stent - [facility] [place] [facility] - Dr Padilla Surgical History History of wisdom tooth extraction S/P coronary artery stent placement x1 stent - 2019 - [facility] [place] [facility] Erika Padilla Hx of colonoscopy (2022) History of cataract surgery Bilateral History of cardiac cath (2018) x1 stent - [facility] [place] [facility] - Dr Padilla History of excision of pilonidal cyst History of repair of rotator cuff Right Family History Father Myocardial infarction, Onset Age: 55 Uncle Myocardial infarction, Onset Age: 68 Mother Afib HTN (hypertension), benign Grandfather (Maternal) HTN (hypertension), benign Sister No problems noted. Brother Aortic aneurysm Brother No problems noted. Son No problems noted. Son No problems noted. Daughter No problems noted. Daughter No problems noted. 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 HEENT- EOMI, mucous membranes dry. Hearing grossly intact. Heart-normal S1 and S2. No murmurs, rubs or gallops. Lungs-clear bilaterally, no respiratory distress, no accessory muscle use. Abdomen-normal bowel sounds and soft. No ascites noted. Non-tender. Extremities- no clubbing, cyanosis, or edema. Left wrist with postop surgical bandages of carpal tunnel release. Results & Data Results & Data Vital Signs (Past 12 Hours) Vital Signs Temp Pulse Resp BP Pulse Ox O2 Del Method 11/15/24 01:47 38.9 C H 11/15/24 01:20 37.6 C H 11/15/24 00:25 83 18 164/85 H 94 11/14/24 22:59 68 11/14/24 22:36 36.7 C 69 18 190/91 H 96 Room Air Laboratory Results reviewed CBC, CMP, troponin, UA, bio fire, lactate Diagnostic Findings reviewed AP CT ECG Additional Comments: ordered Code Status & VTE Plan Code Status full code VTE Prophylaxis Plan VTE Prophylaxis will be ordered: Yes Supervising Physician Co-Signing Physician Notes Attending addendum: I have physically seen this patient, have supervised the GIOVANNY's activities, and agree with the H&P unless as otherwise noted. Assessment and Plan: The patient is a 59-year-old male with past medical history including severe GABE, CAD status post stent to left CEA 2018 on aspirin and Plavix, hyperlipidemia, hypertension and chronic pain syndrome. He presents to the emergency department with bilateral lower abdominal pain that began around noon earlier in the day today. He has had several episodes of loose stools, which causes relief of the pain. Workup in the emergency department included CT scan of abdomen pelvis which shows acute sigmoid colon diverticulitis without perforation. Patient was found a temperature 38.9 C. He is referred to the [facility] service for further evaluation and treatment. Acute sigmoid colon diverticulitis- CT scan abdomen pelvis with abnormal finding History of colonoscopy 10/11/2022 with several polyps and multiple small mouth diverticula in sigmoid colon Placed on clear liquid diet, and advance as tolerated Status post 1 L normal saline bolus, Zofran 4 mg IV, dicyclomine 20 mg IV, and Zosyn 4.5 g IV. Continue IV fluids with LR at 80 mL/h x 1 L Zosyn 4.5 g IV every 8 hours Zofran 4 mg IV every 6 hours as needed Acetaminophen 1 g IV every 8 hours as needed for mild pain or fever Severe GABE- BiPAP at bedtime, initial settings / with backup rate 14 Renal cyst- CT with 8.1 cm simple left renal cyst Can be followed serially in the outpatient setting Chronic stable conditions: CAD/status post stent RCA 2018-continue aspirin and clopidogrel Hyperlipidemia-on atorvastatin as outpatient Hypertension-continue metoprolol. Hold valsartan/HCTZ Anemia- Hemoglobin 13.4, close to baseline PG Care Time/CCT Total # of Minutes Spent Total Time Spent with Patient: Total time spent is greater than 50% in coordination of care (as documented) at patient's floor/unit and/or counseling patient: Coding Level of Care Code 26405 INT INP/OBS CARE 75MIN Diagnoses Sigmoid diverticulosis K57.30 Fever R50.9 Sleep apnea G47.30 Renal cyst N28.1
[2024-11-15 02:19] LABS: Adenovirus PCR Not Detected (NotDetected); Bordetella parapertussis PCR Not Detected (NotDetected); Bordetella pertussis PCR Not Detected (NotDetected); Chlamydia pneumoniae PCR Not Detected (NotDetected); Coronavirus 229E PCR Not Detected (NotDetected); Coronavirus CoV-2 (COVID19)PCR Not Detected (NotDetected); Coronavirus HKU1 PCR Not Detected (NotDetected); Coronavirus NL63 PCR Not Detected (NotDetected); Coronavirus OC43PCR Not Detected (NotDetected); Human Metapneumovirus PCR Not Detected (NotDetected); Influenza A PCR Not Detected (NotDetected); Influenza B PCR Not Detected (NotDetected); Mycoplasma pneumoniae PCR Not Detected (NotDetected); Parainfluenza Virus 1 PCR Not Detected (NotDetected); Parainfluenza Virus 2 PCR Not Detected (NotDetected); Parainfluenza Virus 3 PCR Not Detected (NotDetected); Parainfluenza Virus 4 PCR Not Detected (NotDetected); Respiratory Syncytial VirusPCR Not Detected (NotDetected); Rhinovirus/Enterovirus PCR Not Detected (NotDetected)
[2024-11-15] MEDS: LACTATED RINGER'S 1,000 ML IV SCH (02:55)
[2024-11-15] MEDS ORDERED: ACETAMINOPHEN 1,000 MG/100 ML VIAL IV PRN (04:04)
[2024-11-15] MEDS ORDERED: ONDANSETRON INJ 2 MG/ML 2 ML VIAL IV PRN (04:04)
[2024-11-15 06:03] LABS: Hematocrit (blood only) 37.3 % (42.0-52.0); Hemoglobin 12.7 g/dl (14.0-18.0); Mean Corpuscular Hemoglobin 29.4 pg (25.0-34.0); Mean Corpuscular Volume 86.3 fL (80.0-100.0); Mean Platelet Volume 10.7 fL (9.4-12.4); Platelet Count 169 K/uL (130-400); RDW Standard Deviation 44.3 fL (36.4-46.3); Red Blood Count 4.32 M/uL (4.70-6.10); White Blood Count 12.53 K/ul (4.8-10.8)
[2024-11-15] MEDS: CLOPIDOGREL BISULFATE 75 MG TAB PO SCH (08:21)
[2024-11-15] MEDS: METOPROLOL SUCC 50MG EXT REL TAB PO SCH (08:21)
[2024-11-15] MEDS: ASPIRIN 81 MG ECTAB PO SCH (08:21)
[2024-11-15] MEDS: AMPICILLIN/SULBACTAM SOD 3,000 MG/100 ML BAG IV SCH (11:30)
--- NOTE | 2024-11-15 14:17 | Electrocardiogram Report ---
Test Reason : Blood Pressure : */* mmHG Vent. Rate : 66 BPM Atrial Rate : 66 BPM P-R Int : 162 ms QRS Dur : 142 ms QT Int : 418 ms P-R-T Axes : 43 -39 33 degrees QTcB Int : 438 ms Normal sinus rhythm Left axis deviation Right bundle branch block Abnormal ECG When compared with ECG of 01-Nov-2024 08:44, No significant change was found Confirmed by Michael Lora ([id number]) on 11/15/2024 2:16:29 PM Referred By: REFERRED SELF Confirmed By: Michael Lora
--- NOTE | 2024-11-15 15:30 | Hospitalist Progress Note ---
Date of Service November 15, 2024 Assessment & Plan (1) Diverticulitis: (2) Sigmoid diverticulosis: (3) Fever: (4) Sleep apnea: (5) Renal cyst: Plan 59yo male with severe GABE, CAD s/p stent, Hyperlipidemia, hypertension. Presented with bilateral lower quadrant abdominal pain. CT a/p with acute sigmoid colon diverticulitis. Following admission overnight he had very high fever with highest temp of nearly 104 degrees. #sigmoid diverticulitis - * uncomplicated * no evidence of microperforation, abscess, or phlegmon * cont IV abx in the form of Unasyn * cont IV fluids * follow blood cx's * pain meds prn * clear liquids for now; no advancement at this time * repeat labs am #fever - * somewhat unusual to have such high fevers with uncomplicated diverticulitis but certainly possible * other infectious w/u negative - u/a, Resp Biofire, etc. * may have early sepsis from the diverticulitis * follow blood cx's * if fevers persist would recheck for flu/COVID, consider tick-borne disease w/u, etc. * cont IV Unasyn #severe GABE - * follows with Dr. Will Israel * Bipap HS - settings with backup rate 14 #renal cyst - * CT abd/pelvis showed 8.1cm simple left renal cyst (no previous imaging/new finding) * renal function stable * follow with PCP #s/p carpal tunnel release of left wrist 11/11/[address] Diaz - no issues Chronic stable diagnoses: anemia - Hgb 13.4, baseline, follow with PCP CADs/p stent to RCA 2018, continue aspirin and Plavix HLDhold atorvastatin as nonessential HTNContinue metoprolol with holding precautions, hold valsartan-HCTZ for now; check magnesium level am Admission and Anticipated Discharge Date Admission Date: November 15, 2024 Subjective still with mild lower abdominal discomfort, LLQ>RLQ no vomiting tolerating clears states he is very tired, but denies myalgias, URI symptoms, cough, dyspnea, vomiting Physical Exam Physical Exam: gen - obese, NAD, does look tired mouth - MMM neck - no JVD heart - RRR, s1 s2, no murmur lungs - CTA b/l abd - soft, no peritoneal signs, BS+, tender b/l lower quadrants, ND ext - no edema, pulses 2+ b/l Results & Data Results & Data Vital Signs (Past 12 Hours) Vital Signs Temp Pulse Resp BP BP Pulse Ox O2 Del Method 11/15/24 15:01 37.5 C 65 18 137/75 95 Room Air 11/15/24 07:28 37.3 C 72 20 133/79 96 Room Air 11/15/24 05:30 36.8 C 81 18 150/80 H 96 Room Air 11/15/24 05:06 82 18 95 Room Air 11/15/24 04:25 39.9 C H 11/15/24 04:21 85 20 141/94 H 96 Room Air Laboratory Results Laboratory Results - last 48 hr 11/14/24 11/14/24 11/15/24 22:57 23:13 00:12 WBC 10.68 RBC 4.58 L Hgb 13.4 L POC Hgb 13.6 L Hct 40.1 L POC Hct 40 L MCV 87.6 MCH 29.3 MCHC 33.4 RDW Std Deviation 44.7 RDW Coeff of Ashlee 14.0 Plt Count 179 MPV 11.2 Immature Gran % (Auto) 0.5 Neut % (Auto) 87.9 Lymph % (Auto) 6.8 [place] % (Auto) 4.2 Eos % (Auto) 0.3 Baso % (Auto) 0.3 Neut # (Auto) 9.39 H Lymph # (Auto) 0.73 L [place] # (Auto) 0.45 Eos # (Auto) 0.03 Baso # (Auto) 0.03 Immature Gran # (Auto) 0.05 POC Sodium 139 Sodium 138 POC Potassium 3.7 Potassium 3.7 POC Chloride 100 L Chloride 102 Carbon Dioxide 31 POC Total CO2 29 Anion Gap 5 POC Anion Gap 14.0 L POC BUN 17 BUN 17 Creatinine 1.31 POC Creatinine 1.4 H Est Cr Clr Drug Dosing 76.2 eGFR 62.70 BUN/Creatinine Ratio 13.0 Glucose 128 H POC Glucose (other) 129 H Lactate Calcium 9.6 POC Ioniz Calcium [place]rell 1.19 Total Bilirubin 0.8 AST 18 ALT 25 Alkaline Phosphatase 66 Troponin I High Sens < 2.3 Total Protein 7.7 Albumin 4.4 Globulin 3.3 Albumin/Globulin Ratio 1.3 Lipase 33 Urine Color Yellow Urine Appearance Clear Urine pH 5.0 Ur Specific [place] 1.024 Urine Protein Negative Urine Glucose (UA) Negative Urine Ketones Negative Urine Blood Negative Urine Nitrite Negative Urine Bilirubin Negative Urine Urobilinogen Negative Ur Leukocyte Esterase Negative Adenovirus (PCR) B. pertussis DNA (PCR) B.parapertussis DNA PCR C. pneumoniae DNA (PCR) Coronavirus OC43 (PCR) Coronavirus HKU1 (PCR) Coronavirus 229E (PCR) SARS-CoV-2 (PCR) Coronavirus NL63 (PCR) Human Metapneumovir PCR Influenza Type A (PCR) Influenza Type B (PCR) M. pneumoniae (PCR) Parainfluenza 1 (PCR) Parainfluenza 2 (PCR) Parainfluenza 3 (PCR) Parainfluenza 4 (PCR) RSV (PCR) Entero/Rhino (PCR) 11/15/24 11/15/24 11/15/24 01:23 01:54 05:45 WBC 12.53 H RBC 4.32 L Hgb 12.7 L POC Hgb Hct 37.3 L POC Hct MCV 86.3 MCH 29.4 MCHC 34.0 RDW Std Deviation 44.3 RDW Coeff of Ashlee 14.0 Plt Count 169 MPV 10.7 Immature Gran % (Auto) Neut % (Auto) Lymph % (Auto) [place] % (Auto) Eos % (Auto) Baso % (Auto) Neut # (Auto) Lymph # (Auto) [place] # (Auto) Eos # (Auto) Baso # (Auto) Immature Gran # (Auto) POC Sodium Sodium POC Potassium Potassium POC Chloride Chloride Carbon Dioxide POC Total CO2 Anion Gap POC Anion Gap POC BUN BUN Creatinine POC Creatinine Est Cr Clr Drug Dosing eGFR BUN/Creatinine Ratio Glucose POC Glucose (other) Lactate 1.7 Calcium POC Ioniz Calcium [place]rell Total Bilirubin AST ALT Alkaline Phosphatase Troponin I High Sens Total Protein Albumin Globulin Albumin/Globulin Ratio Lipase Urine Color Urine Appearance Urine pH Ur Specific [place] Urine Protein Urine Glucose (UA) Urine Ketones Urine Blood Urine Nitrite Urine Bilirubin Urine Urobilinogen Ur Leukocyte Esterase Adenovirus (PCR) Not Detected B. pertussis DNA (PCR) Not Detected B.parapertussis DNA PCR Not Detected C. pneumoniae DNA (PCR) Not Detected Coronavirus OC43 (PCR) Not Detected Coronavirus HKU1 (PCR) Not Detected Coronavirus 229E (PCR) Not Detected SARS-CoV-2 (PCR) Not Detected Coronavirus NL63 (PCR) Not Detected Human Metapneumovir PCR Not Detected Influenza Type A (PCR) Not Detected Influenza Type B (PCR) Not Detected M. pneumoniae (PCR) Not Detected Parainfluenza 1 (PCR) Not Detected Parainfluenza 2 (PCR) Not Detected Parainfluenza 3 (PCR) Not Detected Parainfluenza 4 (PCR) Not Detected RSV (PCR) Not Detected Entero/Rhino (PCR) Not Detected Diagnostic Findings Abdomen/Pelvis CT 11/14/24 22:50 Exam(s): CT ABDOMEN + PELVIS With Contrast IV Amt: 93 ml optiray 320 EXAM: CT Abdomen and Pelvis With Intravenous Contrast CLINICAL HISTORY: Reason for exam: lower abd pain. TECHNIQUE: Axial computed tomography images of the abdomen and pelvis with intravenous contrast. CTDI is 28.14 mGy and DLP is 1437.03 mGy-cm. Automated exposure control was utilized for the study. A dose lowering technique was utilized adhering to the principles of ALARA. CONTRAST: Patient received 93 ml optiray 320 of IV contrast COMPARISON: No relevant prior studies available. FINDINGS: Lung bases: Unremarkable. No mass. No consolidation. ABDOMEN: Liver: Unremarkable. No mass. Gallbladder and bile ducts: The gallbladder is contracted. No pericholecystic inflammatory changes are noted. No ductal dilation. Pancreas: Unremarkable. No mass. No ductal dilation. Spleen: Unremarkable. No splenomegaly. Adrenals: Unremarkable. No mass. Kidneys and ureters: There is a simple 8.1 x 5.7 cm left renal cyst. No hydronephrosis. Stomach and bowel: There are several sigmoid colon diverticula. There is segmental sigmoid colon wall thickening and moderate peridiverticular inflammatory changes consistent with diverticulitis. There is no evidence for perforation or abscess. No obstruction. PELVIS: Appendix: No findings to suggest acute appendicitis. Bladder: Unremarkable. No mass. Reproductive: Unremarkable as visualized. ABDOMEN and PELVIS: Intraperitoneal space: Unremarkable. No free air. No significant fluid collection. Bones/joints: There is multilevel thoracolumbar degenerative disc disease. There is retrolisthesis at L2-3 and L3-4. There are posterior disc osteophyte complexes at L2-3 through L5-S1. No acute fracture. No dislocation. Soft tissues: Unremarkable. Vasculature: Unremarkable. No abdominal aortic aneurysm. Lymph nodes: Unremarkable. No enlarged lymph nodes. IMPRESSION: 1. Findings consistent with acute sigmoid colon diverticulitis. No evidence for perforation or abscess. 2. 8.1 cm simple left renal cyst. 3. Advanced multilevel thoracal lumbar spondylosis as noted above.. Electronically signed by: Carrington Fields MD 11/15/24 01:32 AM PG Care Time/CCT Total # of Minutes Spent Total Time Spent with Patient: Total time spent is greater than 50% in coordination of care (as documented) at patient's floor/unit and/or counseling patient: Coding Level of Care Code None Diagnoses Diverticulitis K57.92 Sigmoid diverticulosis K57.30 Fever R50.9 Sleep apnea G47.30 Renal cyst N28.1
[2024-11-15] MEDS: ACETAMINOPHEN 500 MG TAB PO PRN (15:44)
[2024-11-15] MEDS ORDERED: Nursing to Pharmacy Communication SCH (19:30)
[2024-11-15] MEDS: NSS + 20MEQ KCL 20 MEQ/1,000 ML BAG IV SCH (19:44)
[2024-11-15] MEDS: KETOROLAC TROMETHAMINE 15 MG/ML VIAL IV ONE (20:55)
[2024-11-16 07:29] LABS: Hematocrit (blood only) 34.2 % (42.0-52.0); Hemoglobin 11.3 g/dl (14.0-18.0); Mean Corpuscular Hemoglobin 29.4 pg (25.0-34.0); Mean Corpuscular Volume 88.8 fL (80.0-100.0); Mean Platelet Volume 11.2 fL (9.4-12.4); Platelet Count 152 K/uL (130-400); RDW Coefficient of Variation 14.6 % (11.5-14.5); RDW Standard Deviation 47.3 fL (36.4-46.3); Red Blood Count 3.85 M/uL (4.70-6.10); White Blood Count 10.46 K/ul (4.8-10.8)
[2024-11-16 08:25] LABS: BUN Creatinine Ratio 12.9 (10-20); Calcium 8.3 mg/dl (8.6-10.3); Creatinine Clr Calc Pharmacy 80.5 ml/min; Magnesium 1.6 mg/dl (1.7-2.4); Potassium 3.5 mmol/L (3.5-5.1)
[2024-11-16 10:30] LABS: Influenza A virus by PCR Negative (Neg); Influenza B virus by PCR Negative (Neg); RSV by PCR Negative (Neg); SARS CoV2 RNA(COVID-19) Ceph NEGATIVE (Negative)
[2024-11-16] MEDS: MAGNESIUM SULFATE / D5W 1 GM/100 ML BAG IV SCH (12:18)
--- NOTE | 2024-11-16 12:49 | Hospitalist Progress Note ---
Date of Service November 16, 2024 Assessment & Plan (1) Diverticulitis: (2) Sigmoid diverticulosis: (3) Fever: (4) Sleep apnea: (5) Renal cyst: (6) Hypomagnesemia: (7) History of colon polyps: Plan 59yo male with severe GABE, CAD s/p stent, Hyperlipidemia, hypertension. Presented with bilateral lower quadrant abdominal pain. CT a/p with acute sigmoid colon diverticulitis. Uncomplicated; no abscess, microperf, etc. Following admission he had very high fever with highest temp of nearly 104 degrees. #sigmoid diverticulitis - * improving * cont IV Unasyn * cont IV fluids but lower the rate to 50ml/hr * clears today, then full liquids tomorrow * pain meds prn * repeat labs am * last colonoscopy was in 2022 - report: - Three 7 to 9 mm polyps in the sigmoid colon, in the transverse colon and in the ascending colon, removed with a hot snare. Resected and retrieved. - Five 3 to 5 mm polyps in the transverse colon and in the ascending colon, removed with a cold snare. Resected and retrieved. - Two 2 to 3 mm polyps in the ascending colon, removed with a cold biopsy forceps. Resected and retrieved. - Diverticulosis in the sigmoid colon. - Non-bleeding internal hemorrhoids. He is on 3 year schedule because of the polyps. Next scope then would be 2025. Will reach out to Gi next week and see if they would want to do it sooner in about 2 months given the diverticulitis and the numerous polyps on prior scope. #fever - * somewhat unusual to have such high fevers with uncomplicated diverticulitis but certainly possible * other infectious w/u negative - u/a, Resp Biofire, etc. * may have had early sepsis from the diverticulitis * blood cx's negative to date * rechecked flu/COVID/RSV - negative * lyme screen negative * anaplasmosis smear negative * fever curve is improving; wbc count today has normalized * cont IV Unasyn #severe GABE - * follows with Dr. Will Israel * Bipap HS - settings with backup rate 14 #renal cyst - * CT abd/pelvis showed 8.1cm simple left renal cyst (no previous imaging/new finding) * renal function stable * follow with PCP #s/p carpal tunnel release of left wrist 11/11/[address] Diaz - no issues sutures intact, incision looks great #hypomagnesemia - 2 grams mag sulfate IV x 1; likely 2nd to chronic HCTZ use; repeat level am Chronic stable diagnoses: anemia - check Fe studies, B12, folate, TSH am to be complete CADs/p stent to RCA 2018, continue aspirin and Plavix HLDhold atorvastatin as nonessential; resume at d/c HTNContinue metoprolol with holding precautions, hold valsartan-HCTZ for now extensively updated at bedside today likely home next 1-2 days if cultures remain negative and he continues to improve Admission and Anticipated Discharge Date Admission Date: November 16, 2024 Subjective no nausea/emesis had large liquid stool earlier today abdominal pain improved in comparison to time of admission still notices it primarily with moving around/bending but it is mild last dose of anything for discomfort - this AM (tylenol, 3/10 on pain scale) no chills fevers improved no dyspnea, CUMMINGS or chest pain pt's /daughter at bedside extensive update given Review of Systems Review of Systems: gen - fevers improved cv - no chest pain pulm - no dyspnea or CUMMINGS Physical Exam Physical Exam: gen - obese, NAD, looks better today mouth - MMM neck - no JVD heart - RRR, s1 s2, no murmur lungs - CTA b/l abd - soft, no peritoneal signs, BS+, minimal tenderness LLQ, ND ext - no edema, pulses 2+ b/l skin - left wrist - volar surface - sutures intact from recent carpal tunnel release; incision looks great Results & Data Results & Data Vital Signs (Past 12 Hours) Vital Signs Temp Pulse Resp BP Pulse Ox O2 Del Method 11/16/24 07:20 37 C 64 20 140/78 95 Room Air 11/16/24 06:06 37.6 C H Laboratory Results Laboratory Results - last 24 hr 11/16/24 11/16/24 11/16/24 07:11 08:11 08:30 WBC 10.46 RBC 3.85 L Hgb 11.3 L Hct 34.2 L MCV 88.8 MCH 29.4 MCHC 33.0 RDW Std Deviation 47.3 H RDW Coeff of Ashlee 14.6 H Plt Count 152 MPV 11.2 Sodium 138 Potassium 3.5 Chloride 104 Carbon Dioxide 27 Anion Gap 7 BUN 16 Creatinine 1.24 Est Cr Clr Drug Dosing 80.5 eGFR 66.98 BUN/Creatinine Ratio 12.9 Glucose 124 H Calcium 8.3 L Magnesium 1.6 L Anaplasma Smear See Comment Lyme Disease Screen Negative SARS-CoV-2 (PCR) NEGATIVE Influenza Type A (PCR) Negative Influenza Type B (PCR) Negative RSV (RT-PCR) Negative Diagnostic Findings Microbiology 11/15/24 01:54 Blood Aerobic Blood Culture - Preliminary No growth in Aerobic bottle after 24 hours. 11/15/24 01:54 Blood Anaerobic Blood Culture - Preliminary No growth in Anaerobic bottle after 24 hours. 11/15/24 01:54 Blood Aerobic Blood Culture - Preliminary No growth in Aerobic bottle after 24 hours. 11/15/24 01:54 Blood Anaerobic Blood Culture - Preliminary No growth in Anaerobic bottle after 24 hours. PG Care Time/CCT Total # of Minutes Spent Total Time Spent with Patient: Total time spent is greater than 50% in coordination of care (as documented) at patient's floor/unit and/or counseling patient: Coding Level of Care Code 76218 SUB INP/OBS CARE 350MIN Diagnoses Diverticulitis K57.92 Sigmoid diverticulosis K57.30 Fever R50.9 Sleep apnea G47.30 Renal cyst N28.1 Hypomagnesemia E83.42 History of colon polyps Z86.010
[2024-11-16] MEDS ORDERED: HYDROCODONE/ACETAMINOPHEN 7.5/325MG TAB PO PRN (17:43)
[2024-11-16 19:27] VITALS: RESP 16
[2024-11-17] MEDS: NSS + 20MEQ KCL 20 MEQ/1,000 ML BAG IV SCH (01:21)
[2024-11-17 06:17] LABS: Hematocrit (blood only) 32.5 % (42.0-52.0); Hemoglobin 10.8 g/dl (14.0-18.0); Mean Corpuscular Hemoglobin 29.8 pg (25.0-34.0); Mean Corpuscular Hgb Conc 33.2 g/dL (32.0-36.0); Mean Corpuscular Volume 89.8 fL (80.0-100.0); Mean Platelet Volume 11.4 fL (9.4-12.4); Platelet Count 148 K/uL (130-400); RDW Coefficient of Variation 14.3 % (11.5-14.5); RDW Standard Deviation 47.1 fL (36.4-46.3); Red Blood Count 3.62 M/uL (4.70-6.10); White Blood Count 7.72 K/ul (4.8-10.8)
[2024-11-17 06:34] LABS: BUN Creatinine Ratio 11.3 (10-20); Calcium 8.4 mg/dl (8.6-10.3); Magnesium 2.1 mg/dl (1.7-2.4); Potassium 3.5 mmol/L (3.5-5.1)
[2024-11-17 06:49] LABS: Thyroid Stimulating Hormone 4.449 uIu/ml (0.300-4.500)
[2024-11-17 06:56] LABS: Folate (Folic Acid),Ser orPlas 13.76 ng/ml (>5.38)
[2024-11-17] MEDS: CYANOCOBALAMIN (B-12) 500 MCG TABLET PO SCH (10:33)
[2024-11-17 15:47] VITALS: BP 142/88; PULSE 62; TEMP 99; O2SAT 95
[2024-11-17] MEDS: AMOXICILLIN/CLAVULANATE 875 MG TAB PO SCH (16:12)
--- NOTE | 2024-11-17 17:19 | Discharge Summary ---
Discharge Summary Date of Service November 17, 2024 Principal Dx & Hospital Course #1 = Principal Diagnosis (1) Diverticulitis: (2) Sigmoid diverticulosis: (3) Fever: (4) Sleep apnea: (5) Renal cyst: (6) Hypomagnesemia: (7) History of colon polyps: Plan 59yo male with severe GABE, CAD s/p stent, Hyperlipidemia, hypertension. Presented with bilateral lower quadrant abdominal pain. CT a/p with acute sigmoid colon diverticulitis. Uncomplicated; no abscess, microperf, etc. Following admission he had very high fever with highest temp of nearly 104 degrees. #sigmoid diverticulitis - * improving * cont IV Unasyn * cont IV fluids but lower the rate to 50ml/hr * clears today, then full liquids tomorrow * pain meds prn * repeat labs am * last colonoscopy was in 2022 - report: - Three 7 to 9 mm polyps in the sigmoid colon, in the transverse colon and in the ascending colon, removed with a hot snare. Resected and retrieved. - Five 3 to 5 mm polyps in the transverse colon and in the ascending colon, removed with a cold snare. Resected and retrieved. - Two 2 to 3 mm polyps in the ascending colon, removed with a cold biopsy forceps. Resected and retrieved. - Diverticulosis in the sigmoid colon. - Non-bleeding internal hemorrhoids. He is on 3 year schedule because of the polyps. Next scope then would be 2025. Will reach out to Gi next week and see if they would want to do it sooner in about 2 months given the diverticulitis and the numerous polyps on prior scope. #fever - * somewhat unusual to have such high fevers with uncomplicated diverticulitis but certainly possible * other infectious w/u negative - u/a, Resp Biofire, etc. * may have had early sepsis from the diverticulitis * blood cx's negative to date * rechecked flu/COVID/RSV - negative * lyme screen negative * anaplasmosis smear negative * fever curve is improving; wbc count today has normalized * cont IV Unasyn #severe GABE - * follows with Dr. Will Israel * Bipap HS - settings with backup rate 14 #renal cyst - * CT abd/pelvis showed 8.1cm simple left renal cyst (no previous imaging/new finding) * renal function stable * follow with PCP #s/p carpal tunnel release of left wrist 3/24/[address] Diaz - no issues sutures intact, incision looks great #hypomagnesemia - 2 grams mag sulfate IV x 1; likely 2nd to chronic HCTZ use; repeat level am Chronic stable diagnoses: anemia - check Fe studies, B12, folate, TSH am to be complete CADs/p stent to RCA 2018, continue aspirin and Plavix HLDhold atorvastatin as nonessential; resume at d/c HTNContinue metoprolol with holding precautions, hold valsartan-HCTZ for now extensively updated at bedside today likely home next 1-2 days if cultures remain negative and he continues to improve Admission HPI Per Admitting Provider Patient is a 59-year-old male with past medical history of severe GABE, CAD s/p stent to L CEA 2018 on aspirin and Plavix, HLD, hypertension. He presented to the ED due to bilateral lower abdominal pain that began at noon today. Typically when he has stomach pain similar to this he has a set several episodes of diarrhea and it resolves. Today he had soft stools and the abdominal pain persisted. AP CT showed acute sigmoid colon diverticulitis and patient was found to have a temperature of 38.9 C. He is being admitted for IV antibiotics. Patient seen at bedside with his present and daughter who is a nurse via telephone at bedside. He confirmed the story above. He denies any blood or dark stools. He denies any nausea or vomiting. He does feel feverish. His appetite has been stable today and he has been able to eat. He had a few sips of water without difficulty in the ED. He had a carpal tunnel procedure on Monday which is doing well. does not use nicotine products or drink alcohol. He denies any dizziness, lightheadedness, chest pain, shortness of breath. He believes he uses a BiPAP, he just received a new machine Monday because his old one was giving too much pressure so he believes. Recent sleep study records reviewed appears patient uses BiPAP currently. He did take his home medications yesterday. Discharge Exam gen - obese, NAD, looks better today mouth - MMM neck - no JVD heart - RRR, s1 s2, no murmur lungs - CTA b/l abd - soft, no peritoneal signs, BS+, minimal tenderness LLQ, ND ext - no edema, pulses 2+ b/l skin - left wrist - volar surface - sutures intact from recent carpal tunnel release; incision looks great Discharge Plan Discharge Items Patient Disposition: Home - Self-Care Reason For Visit: DIVERTICULITIS Discharge Diagnosis: 1. sigmoid colon diverticulitis - improving 2. vitamin B12 deficiency 3. suspected iron deficiency 4. anemia - due to #2 and #3 5. history of colon polyps 6. left-sided simple renal cyst 7. fevers - resolved; due to #1 above 8. high blood pressure Follow-up/Referrals: Jeromy Proctor DO [Physician] - (we will contact Dr Proctor and determine timing of repeat colonoscopy, if recommended by Dr Proctor, as well as any other testing) Amrit Lara DO [Primary Care Provider] - (see Dr Lara within 3-4 days for recheck ) Diet: Full liquid Addtl Attending Provider Instructions: Mr Barajas, You were hospitalized due to acute diverticulitis of the sigmoid colon which is the last portion of the colon before the rectum. This is one of the most common locations for diverticular disease and diverticulitis flare-ups. You improved with dietary restriction, IV fluids, IV antibiotics, and supportive care. You tolerated clear liquids, then we advanced you to "full liquids" and you have tolerated that as well. Due to your mild, chronic anemia we checked various vitamin levels including vitamin B12, folic acid, and iron. You have vitamin B12 deficiency. Your level was 160 (normal >180). Folic acid level was normal. Iron levels can be difficult to interpret in the setting of infection but your iron levels also suggest deficiency. Recommendations - 1. follow a "full liquids" diet for the rest of today, Monday, and Monday. See handout. 2. on Monday you can start to introduce low fiber foods/solids into your diet. See handout on low fiber. Please stay on the low fiber diet for at least 1 week. 3. antibiotics - * start AM of 11/18/24 * amoxicillin-clavulanate 875mg twice daily x 7 days * take with food * most common side effect - diarrhea 4. stay well hydrated over the next 2-3 days in particular. 5. you were recently prescribed ondansetron (prior to this hospital stay) which is a medicine for nausea. You can take 1 tablet every 6 hours as needed for nausea/vomiting. 6. vitamin B12 - take 1000mcg (1mg) once daily for about 6 months. Have your family doctor recheck your vitamin B12 level down the line to ensure normalization. 7. iron - take ferrous sulfate 325mg once every other day. I would start this in about 6-7 days as iron can cause constipation. Iron can also make your stools look dark. These are typical side effects with iron supplementation. Have your family doctor follow your iron levels over time. 8. please hold your valsartan-hydrochlorothiazide for now. Check your blood pressure daily at home. If your systolic blood pressure ("top" number) is consistently >140 then you can resume the medicine. 9. I will reach out to Dr Proctor from [facility] and ask him about pursuing repeat colonoscopy sooner than 2025 (+/- upper endoscopy as well) in light of your anemia, diverticulitis, etc. Follow-up - see separate section Return to [facility] if - * you have recurrent fevers over 100.5 degrees * you have worsening abdominal pain * you have persistent nausea/vomiting that is not responding to nausea medicine * any other concerns It was our pleasure to care for you! -Dr Polo Pending Studies at Discharge: Yes Studies:: blood cultures, but thus far negative (no bacteria in the blood) Stand-Alone Forms: My [facility] [place] [employer], Work/School Release, Smoking Cessation Medications and DC Order Prescriptions: New amoxicillin-pot clavulanate 875-125 mg Tablet 1 tab PO BIDM 7 Days Qty: 14 0RF cyanocobalamin (vitamin B-12) 1,000 mcg tablet 1,000 mcg PO DAILY Qty: 90 1RF Rx Instructions: purchase [id number] ferrous sulfate 325 mg (65 mg iron) tablet 325 mg PO Q OTHER DAY Qty: 60 0RF Rx Instructions: purchase [id number] Continued nitroglycerin [Nitrostat] 0.4 mg tablet, sublingual 0.4 mg Sublingual Q5M PRN (Reason: chest pain) Qty: 25 5RF icosapent ethyl [Vascepa] 1 gram capsule 2 g PO BID Qty: 360 3RF BiPap Machine Misc See Rx Instructions .ROUTE .COMPLEX Qty: 1 0RF Rx Instructions: Transition to bilevel ST with a backup rate of 14: [facility]; aspirin [Ecotrin Low Strength] 81 mg Tablet,Delayed Release (Dr/Ec) 81 mg PO QAM Qty: 30 0RF atorvastatin [Lipitor] 80 mg tablet 80 mg PO HS metoprolol succinate 100 mg tablet extended release 24 hr 150 mg PO QAM clopidogrel [Plavix] 75 mg tablet 75 mg PO QAM tramadol 50 mg tablet 50 mg PO Q6H PRN (Reason: pain) Qty: 18 0RF Rx Instructions: initial therapy ondansetron 4 mg tablet,disintegrating 4 mg PO Q6H PRN (Reason: nausea and vomiting) Qty: 10 0RF Held valsartan-hydrochlorothiazide 320-25 mg tablet 1 tab PO QAM Hold Instructions: hold for now Discharge Orders: Discharge Order (Routine); Ordered 11/17/24 Ordered By: Phillip Mauro/Other Patient Handouts: Low-Fiber Diet, Diverticulosis and Diverticulitis, Diverticulitis Dc, Full Liquid Diet Dc, Simple Kidney Cysts Admission Data Admit Date/Time: 11/16/24 08:14 Attending Provider: Phillip Polo Admit Provider: Tena Osorio Primary Care Provider: Amrit Lara Other Providers: Tl Woodruff Hospital Stay Data Consultations 11/15/24 02:48 ED Decision to Admit Stat Diagnostic Imagining Performed 11/14/24 22:50 CT abd pelvis IV con only Stat Pending Results Patient Have Any Pending Studies at Discharge: Yes Discharge Instructions Given to Patient (Per Discharging Provider) Mr Barajas, Roly were hospitalized due to acute diverticulitis of the sigmoid colon which is the last portion of the colon before the rectum. This is one of the most common locations for diverticular disease and diverticulitis flare-ups. You improved with dietary restriction, IV fluids, IV antibiotics, and supportive care. You tolerated clear liquids, then we advanced you to "full liquids" and you have tolerated that as well. Due to your mild, chronic anemia we checked various vitamin levels including vitamin B12, folic acid, and iron. You have vitamin B12 deficiency. Your level was 160 (normal >180). Folic acid level was normal. Iron levels can be difficult to interpret in the setting of infection but your iron levels also suggest deficiency. Recommendations - 1. follow a "full liquids" diet for the rest of today, Monday, and Monday. See handout. 2. on Monday you can start to introduce low fiber foods/solids into your diet. See handout on low fiber. Please stay on the low fiber diet for at least 1 week. 3. antibiotics - * start AM of 11/18/24 * amoxicillin-clavulanate 875mg twice daily x 7 days * take with food * most common side effect - diarrhea 4. stay well hydrated over the next 2-3 days in particular. 5. you were recently prescribed ondansetron (prior to this hospital stay) which is a medicine for nausea. You can take 1 tablet every 6 hours as needed for nausea/vomiting. 6. vitamin B12 - take 1000mcg (1mg) once daily for about 6 months. Have your family doctor recheck your vitamin B12 level down the line to ensure normalization. 7. iron - take ferrous sulfate 325mg once every other day. I would start this in about 6-7 days as iron can cause constipation. Iron can also make your stools look dark. These are typical side effects with iron supplementation. Have your family doctor follow your iron levels over time. 8. please hold your valsartan-hydrochlorothiazide for now. Check your blood pressure daily at home. If your systolic blood pressure ("top" number) is consistently >140 then you can resume the medicine. 9. I will reach out to Dr Proctor from [facility] and ask him about pursuing repeat colonoscopy sooner than 2025 (+/- upper endoscopy as well) in light of your anemia, diverticulitis, etc. Follow-up - see separate section Return to [facility] if - * you have recurrent fevers over 100.5 degrees * you have worsening abdominal pain * you have persistent nausea/vomiting that is not responding to nausea medicine * any other concerns It was our pleasure to care for you! -Dr Polo Coding Diagnoses Diverticulitis K57.92 Sigmoid diverticulosis K57.30 Fever R50.9 Sleep apnea G47.30 Renal cyst N28.1 Hypomagnesemia E83.42 History of colon polyps Z86.010
== END 2024-11-17 18:10 | disposition home or self-care (01) | DRG 392 ==
LOC: SUATTDRO → ED 22:33 → EDINP 22:33 → SUATTDRO 11-15 02:46 → 3W 11-15 04:04